=== PATIENT | male | born 1935 ===

== ENCOUNTER 2017-05-27 07:03 | Inpatient (IN) | payer MEDICARE, OTHER ==
[~2017-05-27] VITALS: Ht 165.1 cm; Wt 86.0 kg
[~2017-05-27 07:03] MED LIST: ACET325 PO; ALBU90OI61 INH; AMOCLA500 PO; ASPI81CH PO; BENZ100A PO; CENTRUM COMPLE1 EACH PO; CENTRUM SILVER1 EAC2 PO; CVS SENNA PLUS1 EACH PO; CYCL10 PO; DULERA 100 MCG/13 GM INH; FAMO20 PO; HYDACE5 PO; INSLIS75I; LEVFLO500 PO; LOSA50 PO; METO50 PO; NAPR220 PO; OMEP20ER PO; PRED20 PO; ROSU10TA PO; SENN187 PO; TAMS.4ER PO; VITAMIN D32000 UNIT PO
[2017-05-27 07:34] LABS: BASOPHILS ABSOLUTE AUTO 0.02 K/mm3 (0.00-0.23); BASOPHILS PERCENT AUTO 0 % (0-2); EOSINOPHILS PERCENT AUTO 0 % (0-6); Hematocrit 42.9 % (37.0-53.0); Hemoglobin 14.3 g/dL (13.5-17.5); IMMATURE GRAN ABSOLUTE AUTO 0.19 K/mm3 (0.00-0.10); IMMATURE GRAN PERCENT AUTO 1 % (0-1); LYMPHOCYTES PERCENT AUTO 7 % (21-46); MONOCYTES ABSOLUTE AUTO 2.01 K/mm3 (0.16-1.47); MONOCYTES PERCENT AUTO 11 % (4-13); Mean Corpuscular HGB 29.5 pg (26.0-34.0); Mean Corpuscular HGB Conc 33.3 g/dL (31.5-36.5); Mean Corpuscular Volume 89 fL (80-100); Mean Platelet Volume 9.7 fL (9.1-12.4); NEUTROPHILS ABSOLUTE AUTO 15.09 K/mm3 (1.96-9.15); NEUTROPHILS PERCENT AUTO 81 % (41-73); Platelet Count 405 K/mm3 (150-400); RDW Coefficient Variation 14.4 % (11.7-14.2); RDW Standard Deviation 46.7 fL (35.1-46.3); Red Blood Cell Count 4.84 M/mm3 (4.30-5.90); White Blood Cell Count 18.61 K/mm3 (4.00-11.30)
[2017-05-27 07:52] LABS: Alanine Aminotransfer (ALT/SGP 66 U/L (12-78); Albumin, Blood 2.8 g/dL (3.4-5.0); Albumin/Globulin Ratio 0.6 (0.8-1.8); Alk Phos 77 U/L (50-136); Anion Gap 6 mmol/L (6-16); Aspartate Aminotrans (AST/SGOT 56 U/L (12-37); Bilirubin, Total 0.6 mg/dL (0.1-1.0); Blood Urea Nitrogen 9 mg/dL (8-24); Bun/Creatinine Ratio 10.6 (12.0-20.0); CO2, Blood 28 mmol/L (21-32); Calcium, Blood 9.3 mg/dL (8.5-10.1); Chloride, Blood 102 mmol/L (98-108); Creatinine, Blood 0.85 mg/dL (0.60-1.20); Globulin, Blood 4.9 g/dL (2.2-4.0); Glomerular Filtration Rate >60 (60-); Glucose, Blood 140 mg/dL (70-99); Potassium, Blood 4.1 mmol/L (3.5-5.5); Sodium, Blood 136 mmol/L (136-145); Total Protein, Blood 7.7 g/dL (6.4-8.2); Troponin I 0.342 ng/mL (0.000-0.040)
[2017-05-27 08:09] LABS: Influenza A Negative (NEGATIVE); Influenza B Negative (NEGATIVE)
[2017-05-27 09:52] LABS: Source, Urine Catheter
[2017-05-27 09:57] LABS: Bilirubin, Urine Neg (Neg); Blood, Urine 3+ (Neg); Glucose Qualitative, Urine Neg (Neg); Ketones, Urine Neg (Neg); Leukocyte Esterase, Urine 3+ (Neg); Nitrite, Urine Neg (Neg); Protein, Urine 2+ (Neg); Specific Gravity, Urine 1.015 (1.003-1.022); Urobilinogen, Urine 1+ (Normal)
[2017-05-27 10:06] LABS: Appearance, Urine Clear (Clear); Color, Urine Yellow (P-Yellow)
[2017-05-27 10:07] LABS: Red Blood Cells, Urine 25-50 /hpf (0-2); White Blood Cells, Urine 25-50 /hpf (0-5)
[2017-05-27 10:08] LABS: Bacteria Mod /hpf; Mucus Light (0-Heavy); Squamous Epithelial Cells Few /hpf (Few)
[2017-05-29 05:24] LABS: Hematocrit 38.3 % (37.0-53.0); Hemoglobin 12.6 g/dL (13.5-17.5); Mean Corpuscular HGB 29.2 pg (26.0-34.0); Mean Corpuscular HGB Conc 32.9 g/dL (31.5-36.5); Mean Corpuscular Volume 89 fL (80-100); Mean Platelet Volume 9.9 fL (9.1-12.4); Platelet Count 465 K/mm3 (150-400); RDW Coefficient Variation 14.6 % (11.7-14.2); RDW Standard Deviation 47.6 fL (35.1-46.3); Red Blood Cell Count 4.31 M/mm3 (4.30-5.90); White Blood Cell Count 19.98 K/mm3 (4.00-11.30)
[2017-05-30 18:13] LABS: Source, Urine Clean Catch
[2017-05-30 18:17] LABS: Appearance, Urine Clear (Clear); Bilirubin, Urine Neg (Neg); Blood, Urine Neg (Neg); Color, Urine Yellow (P-Yellow); Glucose Qualitative, Urine Neg (Neg); Ketones, Urine Neg (Neg); Leukocyte Esterase, Urine Neg (Neg); Nitrite, Urine Neg (Neg); Protein, Urine Neg (Neg); Urobilinogen, Urine 2+ (Normal); pH, Urine 6.5 (5.0-8.0)
[2017-05-31 05:00] LABS: BASOPHILS PERCENT AUTO 0 % (0-2); EOSINOPHILS PERCENT AUTO 0 % (0-6); Hematocrit 39.2 % (37.0-53.0); Hemoglobin 12.7 g/dL (13.5-17.5); IMMATURE GRAN ABSOLUTE AUTO 0.04 K/mm3 (0.00-0.10); IMMATURE GRAN PERCENT AUTO 0 % (0-1); LYMPHOCYTES ABSOLUTE AUTO 0.84 K/mm3 (0.84-5.20); LYMPHOCYTES PERCENT AUTO 9 % (21-46); MONOCYTES ABSOLUTE AUTO 0.61 K/mm3 (0.16-1.47); MONOCYTES PERCENT AUTO 7 % (4-13); Mean Corpuscular HGB 29.5 pg (26.0-34.0); Mean Corpuscular HGB Conc 32.4 g/dL (31.5-36.5); Mean Corpuscular Volume 91 fL (80-100); Mean Platelet Volume 9.8 fL (9.1-12.4); NEUTROPHILS PERCENT AUTO 84 % (41-73); Platelet Count 429 K/mm3 (150-400); RDW Coefficient Variation 14.5 % (11.7-14.2); Red Blood Cell Count 4.31 M/mm3 (4.30-5.90); White Blood Cell Count 8.99 K/mm3 (4.00-11.30)
[2017-05-31 05:19] LABS: Anion Gap 4 mmol/L (6-16); Blood Urea Nitrogen 19 mg/dL (8-24); Bun/Creatinine Ratio 23.5 (12.0-20.0); CO2, Blood 31 mmol/L (21-32); Calcium, Blood 8.5 mg/dL (8.5-10.1); Chloride, Blood 102 mmol/L (98-108); Creatinine, Blood 0.81 mg/dL (0.60-1.20); Glomerular Filtration Rate >60 (60-); Glucose, Blood 246 mg/dL (70-99); Potassium, Blood 5.1 mmol/L (3.5-5.5); Sodium, Blood 137 mmol/L (136-145)
[2017-05-31] MEDS ORDERED: TAMS.4ER PO (09:44)
[2017-05-31] MEDS ORDERED: Florastor250 MG PO (09:45)
[2017-05-31] MEDS ORDERED: Veetids 500500 MG PO (09:46)
[2017-05-31] MEDS ORDERED: DELTASONE20 MG (09:48)
== END 2017-05-31 11:49 | disposition home or self-care (01) | DRG 871 ==
LOC: ER 07:03 → MEDS 09:28 → ENPENDDIS 05-31 09:00 → MEDS 05-31 11:49
PROVIDERS: Emergency Medicine; Internal Medicine
DX: A41.9 Sepsis, unspecified organism (principal); J96.01 Acute respiratory failure with hypoxia; J18.1 Lobar pneumonia, unspecified organism; J44.0 Chronic obstructive pulmonary disease with (acute) lower respiratory infection; J44.1 Chronic obstructive pulmonary disease with (acute) exacerbation; N39.0 Urinary tract infection, site not specified; R65.10 Systemic inflammatory response syndrome (SIRS) of non-infectious origin without acute organ dysfunction; Z79.01 Long term (current) use of anticoagulants; Z79.82 Long term (current) use of aspirin; I10 Essential (primary) hypertension; Z87.891 Personal history of nicotine dependence
CPT/HCPCS: 36415; 71020; 80048; 80053; 81001; 81003; 83880; 84484; 85025; 85027; 87070; 87086; 87186; 87205; 87804; 93005; 93010; 94640; 94664; 94667; 94760; 96365; 96372; 96375; 98960; 99285; J1650; J2540; J2543; J2920; J2930; J7030

== ENCOUNTER 2017-06-25 18:10 | Inpatient (IN) | payer MEDICARE, OTHER ==
[~2017-06-25] VITALS: Ht 165.1 cm; Wt 86.4 kg
[~2017-06-25 18:10] MED LIST changes: +DELTASONE20 MG; +Florastor250 MG PO; +Veetids 500500 MG PO
[2017-06-25 19:35] LABS: BASOPHILS ABSOLUTE AUTO 0.04 K/mm3 (0.00-0.23); BASOPHILS PERCENT AUTO 0 % (0-2); EOSINOPHILS ABSOLUTE AUTO 0.05 K/mm3 (0.00-0.68); EOSINOPHILS PERCENT AUTO 0 % (0-6); Hematocrit 44.7 % (37.0-53.0); Hemoglobin 14.6 g/dL (13.5-17.5); IMMATURE GRAN ABSOLUTE AUTO 0.09 K/mm3 (0.00-0.10); IMMATURE GRAN PERCENT AUTO 1 % (0-1); LYMPHOCYTES ABSOLUTE AUTO 1.96 K/mm3 (0.84-5.20); LYMPHOCYTES PERCENT AUTO 16 % (21-46); MONOCYTES ABSOLUTE AUTO 1.25 K/mm3 (0.16-1.47); MONOCYTES PERCENT AUTO 10 % (4-13); Mean Corpuscular HGB Conc 32.7 g/dL (31.5-36.5); Mean Corpuscular Volume 89 fL (80-100); Mean Platelet Volume 9.5 fL (9.1-12.4); NEUTROPHILS ABSOLUTE AUTO 8.82 K/mm3 (1.96-9.15); NEUTROPHILS PERCENT AUTO 72 % (41-73); Platelet Count 234 K/mm3 (150-400); RDW Coefficient Variation 14.6 % (11.7-14.2); RDW Standard Deviation 47.1 fL (35.1-46.3); Red Blood Cell Count 5.04 M/mm3 (4.30-5.90); White Blood Cell Count 12.21 K/mm3 (4.00-11.30)
[2017-06-25 19:50] LABS: Alanine Aminotransfer (ALT/SGP 22 U/L (12-78); Albumin, Blood 3.2 g/dL (3.4-5.0); Albumin/Globulin Ratio 0.7 (0.8-1.8); Alk Phos 114 U/L (50-136); Anion Gap 9 mmol/L (6-16); Aspartate Aminotrans (AST/SGOT 16 U/L (12-37); Bilirubin, Total 0.5 mg/dL (0.1-1.0); Blood Urea Nitrogen 14 mg/dL (8-24); Bun/Creatinine Ratio 13.9 (12.0-20.0); CO2, Blood 25 mmol/L (21-32); Calcium, Blood 9.3 mg/dL (8.5-10.1); Chloride, Blood 104 mmol/L (98-108); Creatinine, Blood 1.01 mg/dL (0.60-1.20); Globulin, Blood 4.6 g/dL (2.2-4.0); Glomerular Filtration Rate >60 (60-); Glucose, Blood 99 mg/dL (70-99); Potassium, Blood 4.2 mmol/L (3.5-5.5); Sodium, Blood 138 mmol/L (136-145); Total Protein, Blood 7.8 g/dL (6.4-8.2)
[2017-06-25] MEDS ORDERED: [UNRECOGNIZED DRUG - CODE] PO (23:11)
[2017-06-25 23:33] LABS: Troponin I 0.207 ng/mL (0.000-0.040)
[2017-06-26 00:06] LABS: Influenza A Negative (NEGATIVE); Influenza B Negative (NEGATIVE)
[2017-06-26 02:23] LABS: Source, Urine Clean Catch
[2017-06-26 02:25] LABS: Bilirubin, Urine Neg (Neg); Blood, Urine 1+ (Neg); Glucose Qualitative, Urine Neg (Neg); Ketones, Urine Neg (Neg); Leukocyte Esterase, Urine Neg (Neg); Nitrite, Urine Neg (Neg); Protein, Urine Neg (Neg); Urobilinogen, Urine NORM (Normal)
[2017-06-26 02:27] LABS: Appearance, Urine Clear (Clear); Color, Urine Yellow (P-Yellow)
[2017-06-26 02:36] LABS: Amorphous Light (0-Heavy); Bacteria Not Seen /hpf; Red Blood Cells, Urine 0-2 /hpf (0-2); Squamous Epithelial Cells Not Seen /hpf (Few); White Blood Cells, Urine Not Seen /hpf (0-5)
[2017-06-26 04:29] LABS: BASOPHILS ABSOLUTE AUTO 0.03 K/mm3 (0.00-0.23); BASOPHILS PERCENT AUTO 0 % (0-2); EOSINOPHILS ABSOLUTE AUTO 0.04 K/mm3 (0.00-0.68); EOSINOPHILS PERCENT AUTO 0 % (0-6); Hematocrit 37.9 % (37.0-53.0); Hemoglobin 12.5 g/dL (13.5-17.5); IMMATURE GRAN ABSOLUTE AUTO 0.08 K/mm3 (0.00-0.10); IMMATURE GRAN PERCENT AUTO 1 % (0-1); LYMPHOCYTES ABSOLUTE AUTO 1.87 K/mm3 (0.84-5.20); LYMPHOCYTES PERCENT AUTO 16 % (21-46); MONOCYTES PERCENT AUTO 6 % (4-13); Mean Corpuscular HGB 29.3 pg (26.0-34.0); Mean Corpuscular Volume 89 fL (80-100); Mean Platelet Volume 9.9 fL (9.1-12.4); NEUTROPHILS ABSOLUTE AUTO 9.35 K/mm3 (1.96-9.15); NEUTROPHILS PERCENT AUTO 78 % (41-73); Platelet Count 215 K/mm3 (150-400); RDW Coefficient Variation 14.6 % (11.7-14.2); RDW Standard Deviation 47.3 fL (35.1-46.3); Red Blood Cell Count 4.26 M/mm3 (4.30-5.90); White Blood Cell Count 12.07 K/mm3 (4.00-11.30)
[2017-06-26 04:53] LABS: Alanine Aminotransfer (ALT/SGP 22 U/L (12-78); Albumin, Blood 2.6 g/dL (3.4-5.0); Albumin/Globulin Ratio 0.7 (0.8-1.8); Alk Phos 87 U/L (50-136); Anion Gap 6 mmol/L (6-16); Aspartate Aminotrans (AST/SGOT 15 U/L (12-37); Bilirubin, Total 0.8 mg/dL (0.1-1.0); Blood Urea Nitrogen 12 mg/dL (8-24); Bun/Creatinine Ratio 12.1 (12.0-20.0); CO2, Blood 27 mmol/L (21-32); Calcium, Blood 8.2 mg/dL (8.5-10.1); Chloride, Blood 105 mmol/L (98-108); Creatinine, Blood 0.99 mg/dL (0.60-1.20); Globulin, Blood 3.9 g/dL (2.2-4.0); Glomerular Filtration Rate >60 (60-); Glucose, Blood 140 mg/dL (70-99); Potassium, Blood 4.6 mmol/L (3.5-5.5); Sodium, Blood 138 mmol/L (136-145); Total Protein, Blood 6.5 g/dL (6.4-8.2)
[2017-06-26 06:24] LABS: Troponin I 0.172 ng/mL (0.000-0.040)
[2017-06-26 12:51] LABS: Troponin I 0.163 ng/mL (0.000-0.040); Vancomycin, Random 5.6 ug/mL
[2017-06-27 04:10] LABS: BASOPHILS ABSOLUTE AUTO 0.01 K/mm3 (0.00-0.23); BASOPHILS PERCENT AUTO 0 % (0-2); EOSINOPHILS PERCENT AUTO 0 % (0-6); Hematocrit 35.4 % (37.0-53.0); Hemoglobin 11.5 g/dL (13.5-17.5); IMMATURE GRAN ABSOLUTE AUTO 0.16 K/mm3 (0.00-0.10); IMMATURE GRAN PERCENT AUTO 1 % (0-1); LYMPHOCYTES ABSOLUTE AUTO 1.14 K/mm3 (0.84-5.20); LYMPHOCYTES PERCENT AUTO 9 % (21-46); MONOCYTES ABSOLUTE AUTO 0.69 K/mm3 (0.16-1.47); MONOCYTES PERCENT AUTO 5 % (4-13); Mean Corpuscular HGB 28.6 pg (26.0-34.0); Mean Corpuscular HGB Conc 32.5 g/dL (31.5-36.5); Mean Corpuscular Volume 88 fL (80-100); Mean Platelet Volume 10.2 fL (9.1-12.4); NEUTROPHILS ABSOLUTE AUTO 11.47 K/mm3 (1.96-9.15); NEUTROPHILS PERCENT AUTO 85 % (41-73); Platelet Count 221 K/mm3 (150-400); RDW Standard Deviation 45.1 fL (35.1-46.3); Red Blood Cell Count 4.02 M/mm3 (4.30-5.90); White Blood Cell Count 13.47 K/mm3 (4.00-11.30)
[2017-06-27 04:20] LABS: Anion Gap 9 mmol/L (6-16); Blood Urea Nitrogen 17 mg/dL (8-24); Bun/Creatinine Ratio 19.7 (12.0-20.0); CO2, Blood 22 mmol/L (21-32); Calcium, Blood 8.2 mg/dL (8.5-10.1); Chloride, Blood 106 mmol/L (98-108); Creatinine, Blood 0.86 mg/dL (0.60-1.20); Glomerular Filtration Rate >60 (60-); Glucose, Blood 304 mg/dL (70-99); Potassium, Blood 3.9 mmol/L (3.5-5.5); Sodium, Blood 137 mmol/L (136-145)
[2017-06-27 12:50] LABS: Vancomycin, Random 14.3 ug/mL
[2017-06-28 05:18] LABS: Hematocrit 37.3 % (37.0-53.0); Hemoglobin 12.1 g/dL (13.5-17.5); Mean Corpuscular HGB 28.9 pg (26.0-34.0); Mean Corpuscular HGB Conc 32.4 g/dL (31.5-36.5); Mean Corpuscular Volume 89 fL (80-100); Mean Platelet Volume 10.1 fL (9.1-12.4); Platelet Count 251 K/mm3 (150-400); RDW Coefficient Variation 14.4 % (11.7-14.2); RDW Standard Deviation 46.5 fL (35.1-46.3); Red Blood Cell Count 4.19 M/mm3 (4.30-5.90); White Blood Cell Count 16.22 K/mm3 (4.00-11.30)
[2017-06-28 06:05] LABS: Anion Gap 8 mmol/L (6-16); Blood Urea Nitrogen 18 mg/dL (8-24); Bun/Creatinine Ratio 18.8 (12.0-20.0); CO2, Blood 24 mmol/L (21-32); Calcium, Blood 8.5 mg/dL (8.5-10.1); Chloride, Blood 108 mmol/L (98-108); Creatinine, Blood 0.96 mg/dL (0.60-1.20); Glomerular Filtration Rate >60 (60-); Glucose, Blood 191 mg/dL (70-99); Potassium, Blood 4.3 mmol/L (3.5-5.5); Sodium, Blood 140 mmol/L (136-145)
[2017-06-28 13:25] LABS: Vancomycin, Trough 9.2 ug/mL (5.0-10.0)
[2017-06-29] MEDS ORDERED: PRED20 (11:42)
[2017-06-29] MEDS ORDERED: METF500C PO (11:45)
[2017-06-29] MEDS ORDERED: AMOX875 PO (11:49)
[2017-06-29] MEDS ORDERED: SACC250C (11:52)
== END 2017-06-29 12:43 | disposition home or self-care (01) | DRG 871 ==
LOC: ER 18:10 → ICUW 23:14 → MEDS 06-27 16:36 → ENPENDDIS 06-29 10:31 → MEDS 06-29 12:43
PROVIDERS: Emergency Medicine; Family Medicine; Internal Medicine; Pharmacist; Physician Assistant
DX: A41.9 Sepsis, unspecified organism (principal); J18.9 Pneumonia, unspecified organism; J96.01 Acute respiratory failure with hypoxia; J44.0 Chronic obstructive pulmonary disease with (acute) lower respiratory infection; E78.5 Hyperlipidemia, unspecified; I10 Essential (primary) hypertension; G47.33 Obstructive sleep apnea (adult) (pediatric); R73.9 Hyperglycemia, unspecified; K21.9 Gastro-esophageal reflux disease without esophagitis; N40.0 Benign prostatic hyperplasia without lower urinary tract symptoms; Z86.73 Personal history of transient ischemic attack (TIA), and cerebral infarction without residual deficits; Z95.2 Presence of prosthetic heart valve; Z87.891 Personal history of nicotine dependence; Z79.82 Long term (current) use of aspirin; Z79.899 Other long term (current) drug therapy
CPT/HCPCS: 36415; 71046; 80048; 80053; 80202; 81001; 82947; 83036; 83605; 84145; 84484; 85025; 85027; 87040; 87493; 87804; 93005; 93010; 94640; 94760; 96365; 96375; 99285; J0744; J1650; J1956; J2543; J2930; J3370; J7030; J7050

== ENCOUNTER 2018-07-08 10:56 | Day surgery (SDC) | payer MEDICARE, OTHER ==
[~2018-07-08] VITALS: Ht 165.1 cm; Wt 87.5 kg
[~2018-07-08 10:56] MED LIST changes: +ALBU90OI INH; +AMOX875 PO; +CHOL10002 PO; +METF500C PO; +PRED20; +ROSU5 PO; +SACC250C; +[UNRECOGNIZED DRUG - CODE] PO
--- NOTE | 2018-07-08 11:21 | NUR ---
History, Chart, Medications and Allergies reviewed before start of procedure.Patient confirms NPO status and agrees with scheduled surgery. Patient reports completing Chlorhexadine shower X2 prior to admission to hospital. LS WITH EXP WHEEZES NOTED. DR. GARZA NOTIFIED VO FOR DOUNEB TREATMENT.
--- NOTE | 2018-07-08 11:40 | NUR ---
PT GIVEN TYLENOL AND OXYTONIN PO. DOUNEB STARTED AT THIS TIME.
--- NOTE | 2018-07-08 11:58 | NUR ---
PT AMB TO BATHROOM WITHOUT DIFFICULTY. LS CLEARER. FAINT EXP WHEEZES NOTED IN LEFT BASE.
--- NOTE | 2018-07-08 18:00 | NUR ---
SHIFT SUMMARY PT A&OX4, VSS, S/P R TKA, AQUACEL & MAHESH WRAP CDI, TEDS & SCDS ON. PT STAND TRANSFER WITH FWW & GB 1 MOD ASSIST TO CHAIR. DENIES PAIN AT THIS TIME. DENIES N&V, EMILY PO. CBG CNI. FAMILY AT BEDSIDE. WILL CTM & TX PRN UNTIL REPORT GIVEN TO ONCEVELIO VASQUEZ RN.
[2018-07-09 04:46] LABS: BASOPHILS ABSOLUTE AUTO 0.02 K/mm3 (0.00-0.23); BASOPHILS PERCENT AUTO 0 % (0-2); EOSINOPHILS ABSOLUTE AUTO 0.01 K/mm3 (0.00-0.68); EOSINOPHILS PERCENT AUTO 0 % (0-6); Hematocrit 41.6 % (37.0-53.0); Hemoglobin 13.3 g/dL (13.5-17.5); IMMATURE GRAN ABSOLUTE AUTO 0.07 K/mm3 (0.00-0.10); IMMATURE GRAN PERCENT AUTO 1 % (0-1); LYMPHOCYTES ABSOLUTE AUTO 2.09 K/mm3 (0.84-5.20); LYMPHOCYTES PERCENT AUTO 15 % (21-46); MONOCYTES ABSOLUTE AUTO 1.23 K/mm3 (0.16-1.47); MONOCYTES PERCENT AUTO 9 % (4-13); Mean Corpuscular HGB 29.3 pg (26.0-34.0); Mean Corpuscular Volume 92 fL (80-100); Mean Platelet Volume 10.3 fL (9.1-12.4); NEUTROPHILS ABSOLUTE AUTO 10.43 K/mm3 (1.96-9.15); NEUTROPHILS PERCENT AUTO 75 % (41-73); Platelet Count 170 K/mm3 (150-400); RDW Coefficient Variation 13.9 % (11.7-14.2); RDW Standard Deviation 47.3 fL (35.1-46.3); Red Blood Cell Count 4.54 M/mm3 (4.30-5.90); White Blood Cell Count 13.85 K/mm3 (4.00-11.30)
--- NOTE | 2018-07-09 04:47 | NUR ---
SHIFT SUMMARY PT A&OX4 T/O SHIFT. NO ACUTE CHANGES. POD#1 R TKA; DRESSING AND MAHESH WRAP CDI T/O SHIFT. PAIN MANAGED PER EMAR. PT DENIES NAUSEA, SOB AND CP T/O SHIFT; RA. BLOOD GLUCOSE MANGED PER EMAR. SCD'S AND SHAUN'S TO BLE'S; PPPX4; PT DENIES N/T IN EXT. PT UP IN MIGUEL WITH FWW, GAITBELT AND SBA X1; UP TO TOILET WITH SAME ASSIT. CALL LIGHT IN REACH; PT DEMONSTRATES USE. WCTM UNTIL REPORT TO DAY SHIFT RN.
[2018-07-09 05:03] LABS: Anion Gap 7 mmol/L (6-16); Blood Urea Nitrogen 18 mg/dL (8-24); Bun/Creatinine Ratio 16.2 (12.0-20.0); CO2, Blood 28 mmol/L (21-32); Calcium, Blood 8.4 mg/dL (8.5-10.1); Chloride, Blood 106 mmol/L (98-108); Creatinine, Blood 1.11 mg/dL (0.60-1.20); Glomerular Filtration Rate >60 (60-); Glucose, Blood 132 mg/dL (70-99); Potassium, Blood 4.5 mmol/L (3.5-5.5); Sodium, Blood 141 mmol/L (136-145)
--- NOTE | 2018-07-09 12:17 | NUR ---
pt medicated with toradol for primary rn. pt sitting in chair eating lunch. family at bedside.
--- NOTE | 2018-07-09 13:51 | NUR ---
pt working with therapy.
[2018-07-09] MEDS ORDERED: ASPI325EC PO ×2 (14:29)
[2018-07-09] MEDS ORDERED: Percocet 5-3251 EACH PO ×2 (14:30)
--- NOTE | 2018-07-09 14:53 | NUR ---
DISCHARGE SUMMARY PT A&OX4, VSS, LEFT FLOOR VIA WC WITH WEB CONTENT WRITER TO GO HOME WITH FRIEND WITH ALL PERSONAL POSSESSIONS INCLUDING DISCHARGE PACKET, 2 AQUACEL DRESSINGS, 2 SCRIPTS: ASA AND PERCOCET, POLAR LILI. DISCHARGE INSTRUCTIONS PROVIDED. PT REP UNDERSTANDING THOSE INSTRUCTIONS INCLUDING DRESSING CHANGES, ASA 325, STOP 81, RESUME 81 AFTER STOP TAKING 325 MG, ICE/ELEVATE AT REST, PAIN MANAGEMENT/ PRIOR TO PHYSICAL THERAPY AND 2 WK FU WITH SURGEON. IV DC'D.
[2018-07-10] MEDS ORDERED: CEPH500 PO (20:46)
== END 2018-07-09 14:49 | disposition home or self-care (01) ==
LOC: ORSCMMR 10:56 → ORD 15:00 → SURS 15:09 → ORSCMMR 07-09 14:49
PROVIDERS: Orthopaedic Surgery
PROC: 0SRC0JA Replacement of Right Knee Joint with Synthetic Substitute, Uncemented, Open Approach (ICD-10-PCS; principal; 2018-07-08 12:30)
DX: M17.11 Unilateral primary osteoarthritis, right knee (principal); Z01.818 Encounter for other preprocedural examination; I10 Essential (primary) hypertension; E11.9 Type 2 diabetes mellitus without complications; J44.9 Chronic obstructive pulmonary disease, unspecified; Z87.891 Personal history of nicotine dependence; Z79.899 Other long term (current) drug therapy; Z79.82 Long term (current) use of aspirin
CPT/HCPCS: 36415; 73560-RT; 80048; 82947; 85025; 86850; 86900; 86901; 88300; 97110; 97116; 97162; 97530; C1776; J0171; J0690; J0735; J1100; J1815; J1885; J2370; J2405; J2795; J3010; J7120

== ENCOUNTER 2018-07-10 19:08 | Emergency (ER) | payer MEDICARE, OTHER ==
[~2018-07-10] VITALS: Ht 165.1 cm; Wt 88.9 kg
[~2018-07-10 19:08] MED LIST changes: +ASPI325EC PO; +Percocet 5-3251 EACH PO
[2018-07-10 20:08] LABS: BASOPHILS ABSOLUTE AUTO 0.05 K/mm3 (0.00-0.23); BASOPHILS PERCENT AUTO 1 % (0-2); EOSINOPHILS PERCENT AUTO 1 % (0-6); IMMATURE GRAN ABSOLUTE AUTO 0.03 K/mm3 (0.00-0.10); IMMATURE GRAN PERCENT AUTO 0 % (0-1); LYMPHOCYTES ABSOLUTE AUTO 2.71 K/mm3 (0.84-5.20); LYMPHOCYTES PERCENT AUTO 26 % (21-46); MONOCYTES ABSOLUTE AUTO 1.41 K/mm3 (0.16-1.47); MONOCYTES PERCENT AUTO 13 % (4-13); Mean Corpuscular HGB 29.5 pg (26.0-34.0); Mean Corpuscular HGB Conc 31.6 g/dL (31.5-36.5); Mean Corpuscular Volume 93 fL (80-100); Mean Platelet Volume 10.5 fL (9.1-12.4); NEUTROPHILS ABSOLUTE AUTO 6.24 K/mm3 (1.96-9.15); NEUTROPHILS PERCENT AUTO 59 % (41-73); Platelet Count 149 K/mm3 (150-400); RDW Coefficient Variation 14.6 % (11.7-14.2); RDW Standard Deviation 50.2 fL (35.1-46.3); Red Blood Cell Count 4.07 M/mm3 (4.30-5.90); White Blood Cell Count 10.54 K/mm3 (4.00-11.30)
[2018-07-10 20:35] LABS: Alanine Aminotransfer (ALT/SGP 23 U/L (12-78); Albumin, Blood 2.8 g/dL (3.4-5.0); Albumin/Globulin Ratio 0.8 (0.8-1.8); Alk Phos 76 U/L (50-136); Anion Gap 5 mmol/L (6-16); Aspartate Aminotrans (AST/SGOT 24 U/L (12-37); Bilirubin, Total 0.7 mg/dL (0.1-1.0); Blood Urea Nitrogen 23 mg/dL (8-24); Bun/Creatinine Ratio 21.5 (12.0-20.0); CO2, Blood 28 mmol/L (21-32); Calcium, Blood 8.4 mg/dL (8.5-10.1); Chloride, Blood 107 mmol/L (98-108); Creatinine, Blood 1.07 mg/dL (0.60-1.20); Globulin, Blood 3.6 g/dL (2.2-4.0); Glomerular Filtration Rate >60 (60-); Glucose, Blood 107 mg/dL (70-99); Potassium, Blood 4.2 mmol/L (3.5-5.5); Sodium, Blood 140 mmol/L (136-145); Total Protein, Blood 6.4 g/dL (6.4-8.2)
[2018-07-10] MEDS ORDERED: CEPH500 PO (20:46)
== END 2018-07-10 22:00 | disposition home or self-care (01) ==
LOC: ER 19:08
PROVIDERS: Physician Assistant
DX: T81.40XA Infection following a procedure, unspecified, initial encounter (principal); L03.115 Cellulitis of right lower limb; E78.00 Pure hypercholesterolemia, unspecified; I10 Essential (primary) hypertension; K21.9 Gastro-esophageal reflux disease without esophagitis; Z87.891 Personal history of nicotine dependence; Z79.899 Other long term (current) drug therapy; Z79.82 Long term (current) use of aspirin; Z96.651 Presence of right artificial knee joint
CPT/HCPCS: 36415; 80053; 85025; 93971; 96365; 99284-25; J0696

== ENCOUNTER 2018-11-22 11:41 | Emergency (ER) | payer MEDICARE, OTHER ==
[~2018-11-22] VITALS: Ht 165.1 cm; Wt 88.9 kg
[~2018-11-22 11:41] MED LIST changes: +CEPH500 PO
[2018-11-22] MEDS ORDERED: Augmentin 875-1 EACH PO (13:13)
== END 2018-11-22 13:26 | disposition home or self-care (01) ==
LOC: ER 11:41
DX: J44.1 Chronic obstructive pulmonary disease with (acute) exacerbation (principal); Z79.899 Other long term (current) drug therapy; Z79.84 Long term (current) use of oral hypoglycemic drugs; Z79.82 Long term (current) use of aspirin; I10 Essential (primary) hypertension; K21.9 Gastro-esophageal reflux disease without esophagitis; Z87.891 Personal history of nicotine dependence
CPT/HCPCS: 71046; 99284-25

== ENCOUNTER 2019-01-04 15:23 | Emergency (ER) | payer MEDICARE, OTHER ==
[~2019-01-04] VITALS: Ht 165.1 cm; Wt 88.9 kg
[~2019-01-04 15:23] MED LIST changes: +Augmentin 875-1 EACH PO
[2019-01-04 16:03] LABS: BASOPHILS ABSOLUTE AUTO 0.08 K/mm3 (0.00-0.23); BASOPHILS PERCENT AUTO 1 % (0-2); EOSINOPHILS ABSOLUTE AUTO 0.77 K/mm3 (0.00-0.68); EOSINOPHILS PERCENT AUTO 9 % (0-6); Hematocrit 51.2 % (37.0-53.0); Hemoglobin 16.4 g/dL (13.5-17.5); IMMATURE GRAN ABSOLUTE AUTO 0.02 K/mm3 (0.00-0.10); IMMATURE GRAN PERCENT AUTO 0 % (0-1); LYMPHOCYTES ABSOLUTE AUTO 3.38 K/mm3 (0.84-5.20); LYMPHOCYTES PERCENT AUTO 39 % (21-46); MONOCYTES ABSOLUTE AUTO 1.01 K/mm3 (0.16-1.47); MONOCYTES PERCENT AUTO 12 % (4-13); Mean Corpuscular HGB 28.8 pg (26.0-34.0); Mean Corpuscular Volume 90 fL (80-100); Mean Platelet Volume 10.3 fL (9.1-12.4); NEUTROPHILS ABSOLUTE AUTO 3.44 K/mm3 (1.96-9.15); NEUTROPHILS PERCENT AUTO 40 % (41-73); Platelet Count 223 K/mm3 (150-400); RDW Coefficient Variation 15.1 % (11.7-14.2)
[2019-01-04 16:27] LABS: Alanine Aminotransfer (ALT/SGP 22 U/L (12-78); Albumin, Blood 3.7 g/dL (3.4-5.0); Albumin/Globulin Ratio 0.9 (0.8-1.8); Alk Phos 110 U/L (50-136); Anion Gap 5 mmol/L (6-16); Aspartate Aminotrans (AST/SGOT 14 U/L (12-37); Bilirubin, Total 0.3 mg/dL (0.1-1.0); Blood Urea Nitrogen 15 mg/dL (8-24); Bun/Creatinine Ratio 16.3 (12.0-20.0); CO2, Blood 30 mmol/L (21-32); Calcium, Blood 9.2 mg/dL (8.5-10.1); Chloride, Blood 106 mmol/L (98-108); Creatinine, Blood 0.92 mg/dL (0.60-1.20); Globulin, Blood 4.2 g/dL (2.2-4.0); Glomerular Filtration Rate >60 (60-); Glucose, Blood 104 mg/dL (70-99); Potassium, Blood 3.8 mmol/L (3.5-5.5); Sodium, Blood 141 mmol/L (136-145); Total Protein, Blood 7.9 g/dL (6.4-8.2)
[2019-01-04] MEDS ORDERED: Atrovent Inha12.9 GM INH (17:56)
[2019-01-04] MEDS ORDERED: Prednisone50 MG PO (17:56)
[2019-01-04] MEDS ORDERED: FLUT1DIS5 INH (17:56)
[2019-01-04] MEDS ORDERED: ALBU90OI INH (17:56)
== END 2019-01-04 19:16 | disposition home or self-care (01) ==
LOC: ER 15:23
PROVIDERS: Physician Assistant
DX: J44.9 Chronic obstructive pulmonary disease, unspecified (principal); Z79.899 Other long term (current) drug therapy; Z79.84 Long term (current) use of oral hypoglycemic drugs; Z79.82 Long term (current) use of aspirin; E78.5 Hyperlipidemia, unspecified; I10 Essential (primary) hypertension; K21.9 Gastro-esophageal reflux disease without esophagitis; Z87.891 Personal history of nicotine dependence
CPT/HCPCS: 36415; 71046; 80053; 85025; 93005; 93010; 94640; 96374; 99284-25; J1100

== ENCOUNTER 2019-06-18 17:17 | Emergency (ER) | payer MEDICARE, OTHER ==
[~2019-06-18] VITALS: Ht 165.1 cm; Wt 89.1 kg
[~2019-06-18 17:17] MED LIST changes: +Atrovent Inha12.9 GM INH; +FLUT1DIS5 INH; +Prednisone50 MG PO
[2019-06-18] MEDS ORDERED: IBUP600 PO (19:12)
== END 2019-06-18 19:26 | disposition home or self-care (01) ==
LOC: ER 17:17
DX: R07.81 Pleurodynia (principal); J44.9 Chronic obstructive pulmonary disease, unspecified; E78.5 Hyperlipidemia, unspecified; I10 Essential (primary) hypertension; K21.9 Gastro-esophageal reflux disease without esophagitis; N40.0 Benign prostatic hyperplasia without lower urinary tract symptoms; Z87.891 Personal history of nicotine dependence; Z79.899 Other long term (current) drug therapy; W19.XXXA Unspecified fall, initial encounter
CPT/HCPCS: 71101; 99283-25; A9270-GY

== ENCOUNTER 2019-11-20 01:08 | Inpatient (IN) | payer MEDICARE, OTHER ==
[~2019-11-20] VITALS: Ht 167.6 cm; Wt 87.0 kg
[~2019-11-20 01:08] MED LIST changes: +IBUP600 PO
[2019-11-20 01:25] LABS: BASOPHILS PERCENT AUTO 1 % (0-2); EOSINOPHILS PERCENT AUTO 5 % (0-6); Hematocrit 52.2 % (37.0-53.0); Hemoglobin 16.4 g/dL (13.5-17.5); IMMATURE GRAN ABSOLUTE AUTO 0.03 K/mm3 (0.00-0.10); IMMATURE GRAN PERCENT AUTO 0 % (0-1); LYMPHOCYTES ABSOLUTE AUTO 8.72 K/mm3 (0.84-5.20); LYMPHOCYTES PERCENT AUTO 56 % (21-46); MONOCYTES ABSOLUTE AUTO 1.31 K/mm3 (0.16-1.47); MONOCYTES PERCENT AUTO 8 % (4-13); Mean Corpuscular HGB 29.6 pg (26.0-34.0); Mean Corpuscular HGB Conc 31.4 g/dL (31.5-36.5); Mean Corpuscular Volume 94 fL (80-100); Mean Platelet Volume 10.5 fL (9.1-12.4); NEUTROPHILS ABSOLUTE AUTO 4.72 K/mm3 (1.96-9.15); NEUTROPHILS PERCENT AUTO 30 % (41-73); Platelet Count 201 K/mm3 (150-400); RDW Coefficient Variation 13.4 % (11.7-14.2); RDW Standard Deviation 46.7 fL (35.1-46.3); Red Blood Cell Count 5.54 M/mm3 (4.30-5.90); White Blood Cell Count 15.68 K/mm3 (4.00-11.30)
[2019-11-20 01:45] LABS: Albumin, Blood 3.9 g/dL (3.4-5.0); Bilirubin, Total 0.5 mg/dL (0.1-1.0); Calcium, Blood 8.9 mg/dL (8.5-10.1); Creatinine, Blood 1.29 mg/dL (0.60-1.20); Globulin, Blood 4.1 g/dL (2.2-4.0); Magnesium, Blood 2.1 mg/dL (1.6-2.4); Potassium, Blood 4.1 mmol/L (3.5-5.5); Troponin I 0.19 ng/mL (0.000-0.040)
--- NOTE | 2019-11-20 07:23 | NUR ---
ARRIVAL TO ICU/SHIFT SUMMARY PT TO ICU 3 VIA TIMOTHY WITH ED RN @ 0350, PT ON BIPAP 14/10 35% FIO2, TOLERATES SHORT BREAK FROM BIPAP FOR TRANSFER TO ICU BED, PT REPORTS SOB OFF OF BIPAP BUT IMPROVED FROM ARRIVAL TO ED. MONITOR SHOWS SINUS RHYTHM, MILD HTN WITH SBP 140'S-150'S, PT DENIES CP. PT ORIENTED x4. PT USES URINAL AT BEDSIDE, VOIDS INDEPENDENTLY. REPORT GIVEN TO DAPHNEY AVILEZ.
--- NOTE | 2019-11-20 12:08 | NUR ---
REASSESSMENT PT HAS BEEN RESTING IN BED OR SITTING ON THE EOB THROUGHOUT THE MORNING. PT STATES HE IS FEELING A LOT BETTER THAN YESTERDAY. TOOK PT OFF BIPAP THIS MORNING FOR BREAKFAST AND HAS MAINTAINED SPO2 88-94% ON RA. PT DOES GET DYSPNEIC AND DESAT WITH STANDING AND ACTIVITY, BUT RECOVERS QUICKLY. SR AT REST, ST IN THE LOW 100S WITH ACTIVITY. HYPERTENSIVE WITH SBP IN 160S PT IS SITTING ON EOB. PT IS EATING WELL AND VOIDING IN THE URINAL. PT HAD A VISITOR THIS MORNING. CONTINUING TO MONITOR.
--- NOTE | 2019-11-20 13:24 | NUR ---
echocardiogram complete
[2019-11-20 14:37] LABS: Adenovirus Not Detected (NOT DETECT); Bordetella pertussis Not Detected (NOT DETECT); Chlamydophila pneumoniae Not Detected (NOT DETECT); Coronavirus 229E Not Detected (NOT DETECT); Coronavirus HKU1 Not Detected (NOT DETECT); Coronavirus NL63 Not Detected (NOT DETECT); Coronavirus OC43 Not Detected (NOT DETECT); Human Metapneumovirus Not Detected (NOT DETECT); Human Rhinovirus/Enterovirus Not Detected (NOT DETECT); Influenza A/2009-H1 Not Detected (NOT DETECT); Influenza A/H1 Not Detected (NOT DETECT); Influenza A/H3 Not Detected (NOT DETECT); Influenza B Not Detected (NOT DETECT); Mycoplasma pneumoniae Not Detected (NOT DETECT); Parainfluenza Virus 1 Not Detected (NOT DETECT); Parainfluenza Virus 2 Not Detected (NOT DETECT); Parainfluenza Virus 3 Not Detected (NOT DETECT); Parainfluenza Virus 4 Not Detected (NOT DETECT); Respiratory Syncytial Virus Not Detected (NOT DETECT)
--- NOTE | 2019-11-20 17:03 | NUR ---
SHIFT SUMMARY PT HAS CONTINUED TO DO WELL THROUGHOUT THE SHIFT. HE STILL GETS DYSPNEIC WITH ACITIVYT, BUT RECOVERS QUICKLY. HIS SPO2 DROPPED TO THE MID 80S WHILE HE WAS SLEEPING. PLACED PT ON 2L/NC AND PT MAINTAINED SPO2 ABOVE 90 WHILE SLEEPING. LUNGS STILL HAVE FEW SCATTERED WHEEZES. ST WITH RATE IN THE LOW 100S, SBP IN THE 160S. EATING WELL. HAS NOT REQUIRED INSULIN COVERAGE. VOIDING SMALL AMTS AT A TIME IN THE URINAL. PT TO TRANSFER OVER TO PCU. REPORT GIVEN TO RAGHAV CHENG.
--- NOTE | 2019-11-20 17:57 | NUR ---
ASSUME CARE: PT TRANSFERRED FROM ICU RECEIVED REPORT FROM JAIDA AVILEZ. PT IS HERE FOR COPD EXACERBATION. PT ARRIVED IN THE UNIT VIA WHEELCHAIR. VITALS HAS BEEN STABLE BP SYSOLIC 140'S, HRR ST 100'S, SATS 93% ON ROOMAIR, AFEBRILE. PT DENIES CHEST PAIN/PRESSURE/SOB. 1PA SBA FOR TRANSFERS. PT IS ALERT AND ORIENTED TO PLACE PERSON AND SITUATION, UNSURE OF TIME AND DATE. FIRST LANGUAGE IS ITALIAN, UNDERSTANDS SIMPLE UKRAINIAN. PT ABLE TO MAKE NEEDS KNOWN COOPERATIVE WITH CARES, CALL LIGHTS WITHIN REACH WILL REPORT TO ONCOMING SHIFT.
[2019-11-21 04:14] LABS: Albumin, Blood 3.7 g/dL (3.4-5.0); Anion Gap 9 mmol/L (6-16); Blood Urea Nitrogen 34 mg/dL (8-24); Bun/Creatinine Ratio 27.4 (12.0-20.0); CO2, Blood 25 mmol/L (21-32); Calcium, Blood 9.2 mg/dL (8.5-10.1); Chloride, Blood 104 mmol/L (98-108); Creatinine, Blood 1.24 mg/dL (0.60-1.20); Glomerular Filtration Rate 59 (60-); Glucose, Blood 191 mg/dL (70-99); Phosphorus, Blood 3.1 mg/dL (2.5-4.9); Potassium, Blood 4.3 mmol/L (3.5-5.5); Sodium, Blood 138 mmol/L (136-145)
--- NOTE | 2019-11-21 05:00 | NUR ---
patient admitted for COPD exacerbation and transferred from ICU to PCU on November 19 I assumed care for this patient around 7 PM. Patient remained stable and on BiPAP throughout most of the shift with oxygen saturations in the mid 90s. Patient denies chest pain, chest pressure, or shortness of breath; no other cardio pulmonary symptoms at this time. No acute changes overnight.
[2019-11-21 05:34] LABS: PCO2 Arterial 41.3 mmHg (35-45); PO2 Arterial 75.8 mmHg (80-100); pH Blood Arterial 7.42 (7.35-7.45)
--- NOTE | 2019-11-21 15:17 | NUR ---
PT CHANGED STATUS TO MEDICAL WITHOUT TELE. VITALS HAS BEEN STABLE FO THE SHIFT, HRR NSR/ST 90'S-100'S, BP SYSTOLIC 130'S DENIES CHEST PAIN/PRESSURE, SATS ABOVE 94% ON ROOMAIR, STILL HAS COUGH MILD SOB WITH EXERTION. PT AMBULATED WITH RT THIS MORNING SATS BEEN ABOVE 95% ON ROOMAIR. PT TO START PREDNISONE PO IN THE MORNING AND TO DISCHARGE IF PT NO EVENTS ON DROPPING O2 LEVELS DURING THE NIGHT. PT HAS BEEN RESTING IN BED FRIEND LAKEISHA CAME IN TO VISIT. HAD SHOWER DONE THIS AFTERNOON. PT RESTING IN BED WITH NO COMPLAINS ABLE TO MAKE NEEDS KNOWN, COOPERATIVE WITH CARES. WILL MONITOR
--- NOTE | 2019-11-21 15:50 | NUR ---
Upon receiving an admit referral for spiritual care, I visit patient. Patient struggles some to understand Italian but is able to tell me that he feels much better than when he arrived at hospital. Patient tells me his denominational background (Rastafari) and about his plan of care. I listen empathically and provide a calming presence and a blessing. Patient responds well and verbalizes appreciation.
--- NOTE | 2019-11-21 18:23 | NUR ---
PT TO ROOM 361 FROM PCU AT APPOX 1600. REPORT FROM RAGHAV MCKEON. PT IS ALERT AND ORIENT, FOLLOWS COMMANDS. LUNGS ARE CLEAR TO AUSCULTATION AND IS ON ROOM AIR. HRR, NOT ON TELEMETRY. PT HAS BEEN AMBULATING IN ROOM/BATHROOM INDEPENDTLY.IV IS SALINE LOCKED AND DRESSING IS C/D/I. PT TOLERATED DINNER WELL. PT DECLINES ANY CONCERNS OR NEEDS. ORIENTED PT TO NEW ROOM.
--- NOTE | 2019-11-22 04:46 | NUR ---
SHIFT SUMMARY PT A/OX4. NO ACUTE CHANGES THIS SHIFT. VSS WITH HR 90-100 BPM. APPEARS TO HAVE SLEPT WELL. SLEEP STUDY CURRENTLY IN PROGRESS. DENIED SOB OR CP. EMILY PO INTAKE. ABLE TO MAKE NEEDS KNOWN. PT APPEARS TO BE CURRENTLY SLEEPING COMFORTABLY IN BED. WILL CONT TO MONITOR AND GIVE REPORT TO ONCOMING RN.
[2019-11-22 05:24] LABS: PCO2 Arterial 38.4 mmHg (35-45); PO2 Arterial 70.2 mmHg (80-100); pH Blood Arterial 7.44 (7.35-7.45)
[2019-11-22] MEDS ORDERED: Aspir 8181 MG PO (11:20)
[2019-11-22] MEDS ORDERED: FLUT1DIS8 INH (11:22)
[2019-11-22] MEDS ORDERED: GUAI600T33 PO (11:26)
[2019-11-22] MEDS ORDERED: IPRAT-ALBUT 0.5-3 ML INH (11:27)
[2019-11-22] MEDS ORDERED: Prednisone10 MG PO (11:29)
[2019-11-22] MEDS ORDERED: ACIDOPHILUS1 EAC3 PO (11:30)
[2019-11-22] MEDS ORDERED: LEVFLO500 PO (11:31)
--- NOTE | 2019-11-22 13:00 | NUR ---
DISCHARGE INSTRUCTIONS GONE OVER WITH PT. INSTRUCTED PT ON NEBULIZER MACHINE AND THAT IT WILL BE DELIVERED AND NEW MEDICATIONS. PT STATED UNDERSTANDING. DISCHARGE INSTRUCTIONS WERE PRINTED IN [place] PER PT REQUEST FOR BETTER UNDERSTANDING. BELONGINGS GATHERED AND GIVEN TO PT. PT ESCORTED OUT VIA WHEEL CHAIR BY RONNA LOZADA. PT'S FRIEND DROVE PT HOME.
== END 2019-11-22 13:05 | disposition home or self-care (01) | DRG 189 ==
LOC: ER 01:08 → ICUW 03:51 → PCU 03:51 → ICUE 03:51 → PCU 17:32 → MEDS 11-21 16:11 → ENPENDDIS 11-22 10:00 → MEDS 11-22 13:05
PROVIDERS: Emergency Medicine; Internal Medicine; ADMIT Internal Medicine
PROC: 8E0ZXY6 Isolation (ICD-10-PCS; principal; 2019-11-20)
PROC: 5A09357 Assistance with Respiratory Ventilation, Less than 24 Consecutive Hours, Continuous Positive Airway Pressure (ICD-10-PCS; 2019-11-20)
DX: J96.01 Acute respiratory failure with hypoxia (principal); J44.1 Chronic obstructive pulmonary disease with (acute) exacerbation; R65.10 Systemic inflammatory response syndrome (SIRS) of non-infectious origin without acute organ dysfunction; J96.02 Acute respiratory failure with hypercapnia; Z79.82 Long term (current) use of aspirin; Z79.84 Long term (current) use of oral hypoglycemic drugs; E78.5 Hyperlipidemia, unspecified; K21.9 Gastro-esophageal reflux disease without esophagitis; I10 Essential (primary) hypertension; J44.9 Chronic obstructive pulmonary disease, unspecified; G47.33 Obstructive sleep apnea (adult) (pediatric); Z95.2 Presence of prosthetic heart valve; Z87.891 Personal history of nicotine dependence; E87.5 Hyperkalemia; N40.0 Benign prostatic hyperplasia without lower urinary tract symptoms; Z20.828 Contact with and (suspected) exposure to other viral communicable diseases; I16.0 Hypertensive urgency; I27.20 Pulmonary hypertension, unspecified
CPT/HCPCS: 0099U; 36415; 36600; 71045; 80053; 80069; 82803; 82947; 83036; 83735; 83880; 84145; 84484; 85025; 93005; 93010; 93306; 94640; 94660; 94664; 94667; 94760; 94761; 94762; 96365; 96375; 98960; 99285-25; A9270-GY; J1650; J1940; J1956; J2930; J7512; U0002

== ENCOUNTER 2020-02-07 17:53 | Inpatient (IN) | payer MEDICARE, OTHER ==
[~2020-02-07] VITALS: Ht 165.1 cm; Wt 90.0 kg
[~2020-02-07 17:53] MED LIST changes: +ACIDOPHILUS1 EAC3 PO; +ALMACONE SUSPE355 ML PO; +AZIT250 PO; +Aspir 8181 MG PO; -CHOL10002 PO; +DILT120ERA PO; +FLUT1DIS8 INH; +GUAI600T33 PO; +IPRAT-ALBUT 0.5-3 ML INH; +Prednisone10 MG PO; +VITAMIN D31000 UNI1 PO
[2020-02-07 18:30] LABS: BASOPHILS ABSOLUTE AUTO 0.07 K/mm3 (0.00-0.23); BASOPHILS PERCENT AUTO 1 % (0-2); EOSINOPHILS ABSOLUTE AUTO 0.54 K/mm3 (0.00-0.68); EOSINOPHILS PERCENT AUTO 6 % (0-6); Hematocrit 45.3 % (37.0-53.0); Hemoglobin 14.4 g/dL (13.5-17.5); IMMATURE GRAN ABSOLUTE AUTO 0.05 K/mm3 (0.00-0.10); IMMATURE GRAN PERCENT AUTO 1 % (0-1); LYMPHOCYTES PERCENT AUTO 33 % (21-46); MONOCYTES ABSOLUTE AUTO 0.93 K/mm3 (0.16-1.47); MONOCYTES PERCENT AUTO 10 % (4-13); Mean Corpuscular HGB 29.3 pg (26.0-34.0); Mean Corpuscular HGB Conc 31.8 g/dL (31.5-36.5); Mean Corpuscular Volume 92 fL (80-100); Mean Platelet Volume 10.3 fL (9.1-12.4); NEUTROPHILS PERCENT AUTO 50 % (41-73); Platelet Count 179 K/mm3 (150-400); RDW Coefficient Variation 14.5 % (11.7-14.2); RDW Standard Deviation 49.1 fL (35.1-46.3); Red Blood Cell Count 4.91 M/mm3 (4.30-5.90); White Blood Cell Count 9.29 K/mm3 (4.00-11.30)
[2020-02-07 19:01] LABS: Alanine Aminotransfer (ALT/SGP 19 U/L (12-78); Albumin, Blood 3.5 g/dL (3.4-5.0); Albumin/Globulin Ratio 0.9 (0.8-1.8); Alk Phos 91 U/L (50-136); Anion Gap 7 mmol/L (6-16); Aspartate Aminotrans (AST/SGOT 15 U/L (12-37); Bilirubin, Total 0.3 mg/dL (0.1-1.0); Blood Urea Nitrogen 17 mg/dL (8-24); Bun/Creatinine Ratio 15.3 (12.0-20.0); CO2, Blood 26 mmol/L (21-32); Chloride, Blood 107 mmol/L (98-108); Creatinine, Blood 1.11 mg/dL (0.60-1.20); Globulin, Blood 3.8 g/dL (2.2-4.0); Glomerular Filtration Rate >60 (60-); Glucose, Blood 103 mg/dL (70-99); Potassium, Blood 4.1 mmol/L (3.5-5.5); Sodium, Blood 140 mmol/L (136-145); Total Protein, Blood 7.3 g/dL (6.4-8.2)
[2020-02-07 19:03] LABS: Troponin I 0.213 ng/mL (0.000-0.040)
[2020-02-07] MEDS ORDERED: ATROVENT HFA12.9 GM INH (19:39)
[2020-02-07] MEDS ORDERED: SPIRIVA RESPIMAT4 G3 INH (19:39)
[2020-02-07] MEDS ORDERED: METFORMIN HCL500 M2 PO (19:39)
[2020-02-07] MEDS ORDERED: PRILOSEC OTC20 MG PO (19:40)
[2020-02-07] MEDS ORDERED: Diltiazem ER120 M2 PO (19:40)
[2020-02-07] MEDS ORDERED: LOSA50 PO (19:41)
--- NOTE | 2020-02-07 20:42 | NUR ---
transfer report from CONTINUOUS WASHER OPERATORRAGHAV Nielson on 85 year old MAle being admitted obs for copd excab. on tele. started on steroids & oxygen 2 l with improved dyspnea. Await admission.
[2020-02-08 02:24] LABS: BASOPHILS ABSOLUTE AUTO 0.06 K/mm3 (0.00-0.23); BASOPHILS PERCENT AUTO 1 % (0-2); EOSINOPHILS ABSOLUTE AUTO 0.01 K/mm3 (0.00-0.68); EOSINOPHILS PERCENT AUTO 0 % (0-6); Hematocrit 43.8 % (37.0-53.0); Hemoglobin 14.1 g/dL (13.5-17.5); IMMATURE GRAN ABSOLUTE AUTO 0.06 K/mm3 (0.00-0.10); IMMATURE GRAN PERCENT AUTO 1 % (0-1); LYMPHOCYTES ABSOLUTE AUTO 0.79 K/mm3 (0.84-5.20); LYMPHOCYTES PERCENT AUTO 11 % (21-46); MONOCYTES ABSOLUTE AUTO 0.08 K/mm3 (0.16-1.47); MONOCYTES PERCENT AUTO 1 % (4-13); Mean Corpuscular HGB 29.7 pg (26.0-34.0); Mean Corpuscular HGB Conc 32.2 g/dL (31.5-36.5); Mean Corpuscular Volume 92 fL (80-100); Mean Platelet Volume 10.6 fL (9.1-12.4); NEUTROPHILS ABSOLUTE AUTO 6.53 K/mm3 (1.96-9.15); NEUTROPHILS PERCENT AUTO 87 % (41-73); Platelet Count 167 K/mm3 (150-400); RDW Coefficient Variation 14.1 % (11.7-14.2); RDW Standard Deviation 47.8 fL (35.1-46.3); Red Blood Cell Count 4.74 M/mm3 (4.30-5.90); White Blood Cell Count 7.53 K/mm3 (4.00-11.30)
[2020-02-08 02:44] LABS: Alanine Aminotransfer (ALT/SGP 19 U/L (12-78); Albumin, Blood 3.2 g/dL (3.4-5.0); Albumin/Globulin Ratio 0.9 (0.8-1.8); Alk Phos 89 U/L (50-136); Anion Gap 6 mmol/L (6-16); Aspartate Aminotrans (AST/SGOT 17 U/L (12-37); Bilirubin, Total 0.4 mg/dL (0.1-1.0); Blood Urea Nitrogen 16 mg/dL (8-24); Bun/Creatinine Ratio 15.8 (12.0-20.0); CO2, Blood 28 mmol/L (21-32); CPK Creatine Kinase 178 U/L (39-308); Calcium, Blood 8.9 mg/dL (8.5-10.1); Chloride, Blood 107 mmol/L (98-108); Creatinine, Blood 1.01 mg/dL (0.60-1.20); Globulin, Blood 3.6 g/dL (2.2-4.0); Glomerular Filtration Rate >60 (60-); Glucose, Blood 282 mg/dL (70-99); Potassium, Blood 4.6 mmol/L (3.5-5.5); Sodium, Blood 141 mmol/L (136-145); Total Protein, Blood 6.8 g/dL (6.4-8.2); Troponin I 0.215 ng/mL (0.000-0.040)
--- NOTE | 2020-02-08 03:37 | NUR ---
85 year old Male with hx of aortic valve replacement COPD & resp failure admitted for dyspnea. PT has hx of CARMELA not on cpap or oxygen at baseline on 2 l NC with helpful effect for SOB. PT has fltter valve & IS at bedside but declined to do either tonight. PRN neb tx for dyspnea with helpful effect, Cough productive sputum sample sent. Hypertensive when first arrived from ER better when rechecked. On tele monitor tachycardic. On IV steroids to tx lung inflammation.
--- NOTE | 2020-02-08 08:40 | NUR ---
PT PLEASASNT COOP A.OX3 TALKATIVE. DENIES PAIN. H/R REG, NO MURMER NOTED. PER TELE S TACH AT 106. LUNGS DIM T/O. RESP EASY, UNLABORED. ON 2L O2. BT X3 LAST BM TODAY VOIDS PER BATHROOM INDEPENDANT IN ROOM. BED IN LOW POSITION, CALL LITE IN REACH, CALLS APPROP
[2020-02-08 10:23] LABS: Troponin I 0.203 ng/mL (0.000-0.040)
[2020-02-08 16:57] LABS: Adenovirus Not Detected (NOT DETECT); Coronavirus 229E Not Detected (NOT DETECT); Coronavirus HKU1 Not Detected (NOT DETECT); Coronavirus NL63 Not Detected (NOT DETECT); Coronavirus OC43 Not Detected (NOT DETECT); Human Metapneumovirus Not Detected (NOT DETECT); Human Rhinovirus/Enterovirus Not Detected (NOT DETECT); Influenza A/2009-H1 Not Detected (NOT DETECT); Influenza A/H1 Not Detected (NOT DETECT); Influenza A/H3 Not Detected (NOT DETECT); Influenza B Not Detected (NOT DETECT); Parainfluenza Virus 1 Not Detected (NOT DETECT); Parainfluenza Virus 2 Not Detected (NOT DETECT); SARS-Cov-2 (COVID-19), BioFire Not Detected (NOT DETECT)
[2020-02-08 16:58] LABS: Bordetella pertussis Not Detected (NOT DETECT); Chlamydophila pneumoniae Not Detected (NOT DETECT); Mycoplasma pneumoniae Not Detected (NOT DETECT); Parainfluenza Virus 3 Not Detected (NOT DETECT); Parainfluenza Virus 4 Not Detected (NOT DETECT); Respiratory Syncytial Virus Not Detected (NOT DETECT)
--- NOTE | 2020-02-08 17:57 | NUR ---
PT PLEASANT TODAY. NO C/O PAIN. REFERRAL CONSULT MADE FOR PULMONARY. WAS SEEN IN ROOM. PT HAS HAD FAMILY /FRIEND IN TO VISIT TODAY. NO NEW CONCERNS AT THIS TIME. BED IN LOW POSITION, CALL LITE IN REACH, CALLS APPROP
--- NOTE | 2020-02-09 04:35 | NUR ---
SHIFT SUMMARY PATIENT HAD NO ACUTE CHANGES OBSERVED. RT REPORTED BREATHING TX CHANGED TO Q4 PER DR ORDERS THIS SHIFT. AXOX 4 AND INDEPENDENT IN ROOM. PIV REMAINS INTACT. CBG 262. TAPE SEWING MACHINE OPERATOR REPORTS NSR 94. SPUTUM SAMPLE COLLECTED AND SENT TO LAB. VSS/AFEBRILE. DENIES PAIN AND N/V. MELATONIN 5 MG ORDERED FOR INSOMNIA BY HOSPITALIST DR WILLSON. COOPERATIVE WITH CARE. CALL LIGHT IN REACH. BED IN LOWEST POSITION. WILL CONTINUE TO MONITOR UNTIL DAY SHIFT NURSE ASSUMES CARE.
[2020-02-09 05:15] LABS: BASOPHILS ABSOLUTE AUTO 0.03 K/mm3 (0.00-0.23); BASOPHILS PERCENT AUTO 0 % (0-2); EOSINOPHILS PERCENT AUTO 0 % (0-6); Hematocrit 40.7 % (37.0-53.0); Hemoglobin 13.1 g/dL (13.5-17.5); IMMATURE GRAN ABSOLUTE AUTO 0.18 K/mm3 (0.00-0.10); IMMATURE GRAN PERCENT AUTO 1 % (0-1); LYMPHOCYTES ABSOLUTE AUTO 1.56 K/mm3 (0.84-5.20); LYMPHOCYTES PERCENT AUTO 10 % (21-46); MONOCYTES ABSOLUTE AUTO 0.98 K/mm3 (0.16-1.47); MONOCYTES PERCENT AUTO 6 % (4-13); Mean Corpuscular HGB 29.5 pg (26.0-34.0); Mean Corpuscular HGB Conc 32.2 g/dL (31.5-36.5); Mean Corpuscular Volume 92 fL (80-100); NEUTROPHILS ABSOLUTE AUTO 13.69 K/mm3 (1.96-9.15); NEUTROPHILS PERCENT AUTO 83 % (41-73); Platelet Count 166 K/mm3 (150-400); RDW Coefficient Variation 14.3 % (11.7-14.2); RDW Standard Deviation 47.5 fL (35.1-46.3); Red Blood Cell Count 4.44 M/mm3 (4.30-5.90); White Blood Cell Count 16.44 K/mm3 (4.00-11.30)
[2020-02-09 06:12] LABS: Anion Gap 8 mmol/L (6-16); Blood Urea Nitrogen 23 mg/dL (8-24); CO2, Blood 26 mmol/L (21-32); Calcium, Blood 8.9 mg/dL (8.5-10.1); Chloride, Blood 108 mmol/L (98-108); Creatinine, Blood 0.96 mg/dL (0.60-1.20); Glomerular Filtration Rate >60 (60-); Glucose, Blood 198 mg/dL (70-99); Potassium, Blood 4.1 mmol/L (3.5-5.5); Sodium, Blood 142 mmol/L (136-145)
--- NOTE | 2020-02-09 17:06 | NUR ---
SHIFT SUMMARY STEROIDS DE-ESCALATED PER MD ORDERS AND ANTIBX STOPPED. IF PT DOES WELL OVERNIGHT, WILL DISCHARGE TOMORROW. ON ROOM AIR SINCE 1145 WITH O2 SATURATIONS TRENDING > OR = 90. ROUNDED WITH DR. MÁRQUEZ AT 1145 WHO STATED OKAY TO KEEP SATS > OR = 88%. NOTIFIED MD AT THAT TIME THAT WBC'S ARE UP TO 16 TODAY FROM 8.
--- NOTE | 2020-02-10 04:00 | NUR ---
SHIFT SUMMARY PATIENT HAD NO ACUTE CHANGES OBSERVED. AXOX 4 AND INDEPENDENT IN THE ROOM. NOW ON ROOM AIR. RT IN FOR BREATHING TX T/O SHIFT. PIV REMAINS INTACT. WAD COMPRESSOR OPERATOR ADJUSTER REPORTS NSR 87. VSS/AFEBRILE. DENIES PAIN, SOB, AND N/V. PATIENT REPORTS BREATHING IMPROVING. COOPERATIVE WITH CARE. CALL LIGHT IN REACH. BED IN LOWEST POSITION. WILL CONTINUE TO MONITOR UNTIL DAY SHIFT NURSE ASSUMES CARE.
[2020-02-10 05:16] LABS: BASOPHILS ABSOLUTE AUTO 0.03 K/mm3 (0.00-0.23); BASOPHILS PERCENT AUTO 0 % (0-2); EOSINOPHILS PERCENT AUTO 0 % (0-6); Hemoglobin 12.8 g/dL (13.5-17.5); IMMATURE GRAN ABSOLUTE AUTO 0.15 K/mm3 (0.00-0.10); IMMATURE GRAN PERCENT AUTO 1 % (0-1); LYMPHOCYTES ABSOLUTE AUTO 1.62 K/mm3 (0.84-5.20); LYMPHOCYTES PERCENT AUTO 11 % (21-46); MONOCYTES ABSOLUTE AUTO 1.04 K/mm3 (0.16-1.47); MONOCYTES PERCENT AUTO 7 % (4-13); Mean Corpuscular HGB 29.4 pg (26.0-34.0); Mean Corpuscular Volume 92 fL (80-100); Mean Platelet Volume 10.6 fL (9.1-12.4); NEUTROPHILS ABSOLUTE AUTO 12.31 K/mm3 (1.96-9.15); NEUTROPHILS PERCENT AUTO 81 % (41-73); Platelet Count 169 K/mm3 (150-400); RDW Coefficient Variation 14.8 % (11.7-14.2); RDW Standard Deviation 50.3 fL (35.1-46.3); Red Blood Cell Count 4.35 M/mm3 (4.30-5.90); White Blood Cell Count 15.15 K/mm3 (4.00-11.30)
[2020-02-10 05:46] LABS: Anion Gap 8 mmol/L (6-16); Blood Urea Nitrogen 30 mg/dL (8-24); CO2, Blood 27 mmol/L (21-32); Calcium, Blood 8.5 mg/dL (8.5-10.1); Chloride, Blood 108 mmol/L (98-108); Creatinine, Blood 1.11 mg/dL (0.60-1.20); Glomerular Filtration Rate >60 (60-); Glucose, Blood 158 mg/dL (70-99); Potassium, Blood 4.3 mmol/L (3.5-5.5); Sodium, Blood 143 mmol/L (136-145)
[2020-02-10] MEDS ORDERED: Prednisone20 MG PO (12:02)
== END 2020-02-10 13:15 | disposition home or self-care (01) | DRG 189 ==
LOC: ER 17:53 → MEDS 17:54 → ENPENDDIS 02-10 11:24 → MEDS 02-10 13:15
PROVIDERS: Family Medicine; Internal Medicine; Physician Assistant; ADMIT Internal Medicine
DX: J96.01 Acute respiratory failure with hypoxia (principal); J44.1 Chronic obstructive pulmonary disease with (acute) exacerbation; Z20.828 Contact with and (suspected) exposure to other viral communicable diseases; K21.9 Gastro-esophageal reflux disease without esophagitis; E11.9 Type 2 diabetes mellitus without complications; E78.5 Hyperlipidemia, unspecified; G47.33 Obstructive sleep apnea (adult) (pediatric); I10 Essential (primary) hypertension; M19.90 Unspecified osteoarthritis, unspecified site; N40.0 Benign prostatic hyperplasia without lower urinary tract symptoms; Z86.73 Personal history of transient ischemic attack (TIA), and cerebral infarction without residual deficits; Z87.891 Personal history of nicotine dependence; Z79.82 Long term (current) use of aspirin; Z79.84 Long term (current) use of oral hypoglycemic drugs; Z79.51 Long term (current) use of inhaled steroids
CPT/HCPCS: 0202U; 36415; 71045; 80048; 80053; 82550; 82947; 83880; 84484; 85025; 87070; 87205; 93005; 93010; 94640; 94667; 94760; 96374; 99285-25; A9270-GY; J1650; J2930; J7030; J7512

== ENCOUNTER 2020-03-04 07:17 | Emergency (ER) | payer MEDICARE, OTHER ==
[~2020-03-04] VITALS: Ht 165.1 cm; Wt 88.9 kg
[~2020-03-04 07:17] MED LIST changes: +ATROVENT HFA12.9 GM INH; +Diltiazem ER120 M2 PO; +METFORMIN HCL500 M2 PO; +PRILOSEC OTC20 MG PO; +Prednisone20 MG PO; +SPIRIVA RESPIMAT4 G3 INH
[2020-03-04 07:39] LABS: BASOPHILS ABSOLUTE AUTO 0.08 K/mm3 (0.00-0.23); BASOPHILS PERCENT AUTO 1 % (0-2); EOSINOPHILS ABSOLUTE AUTO 0.75 K/mm3 (0.00-0.68); EOSINOPHILS PERCENT AUTO 8 % (0-6); Hematocrit 45.3 % (37.0-53.0); Hemoglobin 14.3 g/dL (13.5-17.5); IMMATURE GRAN ABSOLUTE AUTO 0.02 K/mm3 (0.00-0.10); IMMATURE GRAN PERCENT AUTO 0 % (0-1); LYMPHOCYTES ABSOLUTE AUTO 2.63 K/mm3 (0.84-5.20); LYMPHOCYTES PERCENT AUTO 29 % (21-46); MONOCYTES ABSOLUTE AUTO 0.71 K/mm3 (0.16-1.47); MONOCYTES PERCENT AUTO 8 % (4-13); Mean Corpuscular HGB 29.7 pg (26.0-34.0); Mean Corpuscular HGB Conc 31.6 g/dL (31.5-36.5); Mean Corpuscular Volume 94 fL (80-100); Mean Platelet Volume 10.2 fL (9.1-12.4); NEUTROPHILS ABSOLUTE AUTO 4.76 K/mm3 (1.96-9.15); NEUTROPHILS PERCENT AUTO 53 % (41-73); Platelet Count 196 K/mm3 (150-400); RDW Standard Deviation 48.6 fL (35.1-46.3); Red Blood Cell Count 4.81 M/mm3 (4.30-5.90); White Blood Cell Count 8.95 K/mm3 (4.00-11.30)
[2020-03-04 08:14] LABS: Alanine Aminotransfer (ALT/SGP 21 U/L (12-78); Albumin, Blood 3.5 g/dL (3.4-5.0); Alk Phos 87 U/L (50-136); Anion Gap 4 mmol/L (6-16); Aspartate Aminotrans (AST/SGOT 10 U/L (12-37); Bilirubin, Total 0.3 mg/dL (0.1-1.0); Blood Urea Nitrogen 13 mg/dL (8-24); Bun/Creatinine Ratio 14.3 (12.0-20.0); CO2, Blood 29 mmol/L (21-32); Calcium, Blood 8.9 mg/dL (8.5-10.1); Chloride, Blood 111 mmol/L (98-108); Creatinine, Blood 0.91 mg/dL (0.60-1.20); Globulin, Blood 3.5 g/dL (2.2-4.0); Glomerular Filtration Rate >60 (60-); Glucose, Blood 150 mg/dL (70-99); Potassium, Blood 3.9 mmol/L (3.5-5.5); Sodium, Blood 144 mmol/L (136-145)
[2020-03-04 08:26] LABS: Troponin I 0.603 ng/mL (0.000-0.040)
[2020-03-04] MEDS ORDERED: AZIT250 PO ×2 (09:58→10:10)
[2020-03-04] MEDS ORDERED: PRED20 PO ×2 (09:58→10:10)
[2020-03-04] MEDS ORDERED: AMOCLA875 PO ×2 (09:58→10:10)
== END 2020-03-04 10:14 | disposition home or self-care (01) ==
LOC: ER 07:17
PROVIDERS: Emergency Medicine
DX: J44.0 Chronic obstructive pulmonary disease with (acute) lower respiratory infection (principal); J18.9 Pneumonia, unspecified organism; J98.01 Acute bronchospasm; R77.8 Other specified abnormalities of plasma proteins; E78.5 Hyperlipidemia, unspecified; I10 Essential (primary) hypertension; K21.9 Gastro-esophageal reflux disease without esophagitis; J44.9 Chronic obstructive pulmonary disease, unspecified; N40.0 Benign prostatic hyperplasia without lower urinary tract symptoms; Z79.82 Long term (current) use of aspirin; Z79.4 Long term (current) use of insulin; Z79.899 Other long term (current) drug therapy; Z79.52 Long term (current) use of systemic steroids; Z87.891 Personal history of nicotine dependence
CPT/HCPCS: 36415; 71045; 80053; 84484; 85025; 93005; 93010; 96365; 96375; 99285-25; J0696; J2930

== ENCOUNTER 2020-05-14 22:16 | Emergency (ER) | payer MEDICARE, OTHER ==
[~2020-05-14] VITALS: Ht 165.1 cm; Wt 86.2 kg
[~2020-05-14 22:16] MED LIST changes: +AMOCLA875 PO; +Aspirin EC81 MG PO; +METF500 PO; +Vitamin D2000 UNIT PO
[2020-05-14] MEDS ORDERED: Zithromax250 MG PO (23:56)
[2020-05-14] MEDS ORDERED: Prednisone50 MG PO (23:57)
== END 2020-05-15 00:09 | disposition home or self-care (01) ==
LOC: ER 22:16
DX: J44.1 Chronic obstructive pulmonary disease with (acute) exacerbation (principal); E11.9 Type 2 diabetes mellitus without complications; Z79.84 Long term (current) use of oral hypoglycemic drugs; Z79.82 Long term (current) use of aspirin; Z79.52 Long term (current) use of systemic steroids; Z79.899 Other long term (current) drug therapy; Z87.891 Personal history of nicotine dependence
CPT/HCPCS: 36415; 71045; 84484; 93005; 93010; 94640; 99285-25; J7512

== ENCOUNTER 2020-05-17 17:47 | Emergency (ER) | payer MEDICARE, OTHER ==
[~2020-05-17] VITALS: Ht 165.1 cm; Wt 88.5 kg
[~2020-05-17 17:47] MED LIST changes: +Zithromax250 MG PO
[2020-05-17 18:12] LABS: BASOPHILS ABSOLUTE AUTO 0.03 K/mm3 (0.00-0.23); BASOPHILS PERCENT AUTO 0 % (0-2); EOSINOPHILS PERCENT AUTO 0 % (0-6); Hemoglobin 14.5 g/dL (13.5-17.5); IMMATURE GRAN ABSOLUTE AUTO 0.05 K/mm3 (0.00-0.10); IMMATURE GRAN PERCENT AUTO 1 % (0-1); LYMPHOCYTES ABSOLUTE AUTO 1.05 K/mm3 (0.84-5.20); LYMPHOCYTES PERCENT AUTO 12 % (21-46); MONOCYTES ABSOLUTE AUTO 0.55 K/mm3 (0.16-1.47); MONOCYTES PERCENT AUTO 6 % (4-13); Mean Corpuscular HGB 29.3 pg (26.0-34.0); Mean Corpuscular HGB Conc 32.2 g/dL (31.5-36.5); Mean Corpuscular Volume 91 fL (80-100); Mean Platelet Volume 10.7 fL (9.1-12.4); NEUTROPHILS ABSOLUTE AUTO 7.27 K/mm3 (1.96-9.15); NEUTROPHILS PERCENT AUTO 81 % (41-73); Platelet Count 220 K/mm3 (150-400); RDW Coefficient Variation 12.9 % (11.7-14.2); Red Blood Cell Count 4.95 M/mm3 (4.30-5.90); White Blood Cell Count 8.95 K/mm3 (4.00-11.30)
[2020-05-17 18:38] LABS: Alanine Aminotransfer (ALT/SGP 19 U/L (12-78); Albumin, Blood 3.6 g/dL (3.4-5.0); Alk Phos 85 U/L (50-136); Anion Gap 8 mmol/L (6-16); Aspartate Aminotrans (AST/SGOT 18 U/L (12-37); Bilirubin, Total 0.3 mg/dL (0.1-1.0); Blood Urea Nitrogen 16 mg/dL (8-24); Bun/Creatinine Ratio 18.6 (12.0-20.0); CO2, Blood 24 mmol/L (21-32); Calcium, Blood 9.5 mg/dL (8.5-10.1); Chloride, Blood 107 mmol/L (98-108); Creatinine, Blood 0.86 mg/dL (0.60-1.20); Globulin, Blood 3.6 g/dL (2.2-4.0); Glomerular Filtration Rate >60 (60-); Glucose, Blood 231 mg/dL (70-99); Potassium, Blood 4.5 mmol/L (3.5-5.5); Sodium, Blood 139 mmol/L (136-145); Total Protein, Blood 7.2 g/dL (6.4-8.2); Troponin I 0.209 ng/mL (0.000-0.040)
[2020-05-17 20:55] LABS: Influenza A, PCR Negative (NEGATIVE); Influenza B, PCR Negative (NEGATIVE); Resp Syncytial Virus, PCR Negative (NEGATIVE); SARS-Cov-2 (COVID-19) PCR, MMC Negative (NEGATIVE)
[2020-05-17] MEDS ORDERED: AZIT250 PO (22:21)
[2020-05-17] MEDS ORDERED: AMOCLA875 PO (22:21)
== END 2020-05-17 22:43 | disposition home or self-care (01) ==
LOC: ER 17:47
PROVIDERS: Emergency Medicine; Physician Assistant
DX: U07.1 COVID-19 (principal); J44.0 Chronic obstructive pulmonary disease with (acute) lower respiratory infection; J12.89 Other viral pneumonia; J44.1 Chronic obstructive pulmonary disease with (acute) exacerbation; Z79.84 Long term (current) use of oral hypoglycemic drugs; Z79.82 Long term (current) use of aspirin; Z79.899 Other long term (current) drug therapy
CPT/HCPCS: 0241U; 36415; 71045; 80053; 83880; 84484; 85025; 93005; 93010; 94640; 96360; 99285-25; J7030

== ENCOUNTER 2020-09-11 13:22 | Day surgery (SDC) | payer MEDICARE, OTHER | END 2020-09-11 23:17 | disposition home or self-care (01) | LOC: WOUND 13:22 | DX: S91.301A Unspecified open wound, right foot, initial encounter (principal); X58.XXXA Exposure to other specified factors, initial encounter; L97.521 Non-pressure chronic ulcer of other part of left foot limited to breakdown of skin; J44.9 Chronic obstructive pulmonary disease, unspecified; I10 Essential (primary) hypertension; Z87.891 Personal history of nicotine dependence | CPT/HCPCS: 87070; 87075; 87205; A9270; G0463 ==

== ENCOUNTER 2020-09-20 00:36 | Day surgery (SDC) | payer MEDICARE, OTHER | END 2020-09-20 23:22 | disposition home or self-care (01) | LOC: WOUND 00:36 | DX: L97.521 Non-pressure chronic ulcer of other part of left foot limited to breakdown of skin (principal) | CPT/HCPCS: A9270; G0463 ==

== ENCOUNTER 2020-10-04 01:57 | Day surgery (SDC) | payer MEDICARE, OTHER | END 2020-10-04 23:14 | disposition home or self-care (01) | LOC: WOUND 01:57 | DX: L97.521 Non-pressure chronic ulcer of other part of left foot limited to breakdown of skin (principal); L40.3 Pustulosis palmaris et plantaris | CPT/HCPCS: G0463 ==

== ENCOUNTER → 2021-05-17 | Outpatient (CLI) | payer MEDICARE, OTHER ==
[2021-05-18 13:40] LABS: Stool Occult Bld Immuno 1 Negative (NEGATIVE)
== END | disposition home or self-care (01) ==
LOC: LAB 12:22 → LAB SHORT 12:22
PROVIDERS: Family Medicine
DX: Z12.11 Encounter for screening for malignant neoplasm of colon (principal)
CPT/HCPCS: G0328

== ENCOUNTER 2021-06-09 09:57 | Emergency (ER) | payer MEDICARE, OTHER ==
[~2021-06-09] VITALS: Ht 165.1 cm; Wt 88.9 kg
[2021-06-09 10:24] LABS: BASOPHILS ABSOLUTE AUTO 0.05 K/mm3 (0.00-0.23); BASOPHILS PERCENT AUTO 1 % (0-2); EOSINOPHILS ABSOLUTE AUTO 0.18 K/mm3 (0.00-0.68); EOSINOPHILS PERCENT AUTO 3 % (0-6); Hematocrit 47.4 % (37.0-53.0); Hemoglobin 15.3 g/dL (13.5-17.5); IMMATURE GRAN ABSOLUTE AUTO 0.02 K/mm3 (0.00-0.10); IMMATURE GRAN PERCENT AUTO 0 % (0-1); LYMPHOCYTES ABSOLUTE AUTO 2.23 K/mm3 (0.84-5.20); LYMPHOCYTES PERCENT AUTO 32 % (21-46); MONOCYTES ABSOLUTE AUTO 0.94 K/mm3 (0.16-1.47); MONOCYTES PERCENT AUTO 14 % (4-13); Mean Corpuscular HGB 28.7 pg (26.0-34.0); Mean Corpuscular HGB Conc 32.3 g/dL (31.5-36.5); Mean Corpuscular Volume 89 fL (80-100); NEUTROPHILS ABSOLUTE AUTO 3.46 K/mm3 (1.96-9.15); NEUTROPHILS PERCENT AUTO 50 % (41-73); Platelet Count 189 K/mm3 (150-400); RDW Coefficient Variation 13.8 % (11.7-14.2); RDW Standard Deviation 44.5 fL (35.1-46.3); Red Blood Cell Count 5.34 M/mm3 (4.30-5.90); White Blood Cell Count 6.88 K/mm3 (4.00-11.30)
[2021-06-09 10:43] LABS: Alanine Aminotransfer (ALT/SGP 28 U/L (12-78); Albumin, Blood 3.4 g/dL (3.4-5.0); Albumin/Globulin Ratio 0.8 (0.8-1.8); Alk Phos 95 U/L (50-136); Anion Gap 4 mmol/L (6-16); Aspartate Aminotrans (AST/SGOT 18 U/L (12-37); Bilirubin, Total 0.4 mg/dL (0.1-1.0); Blood Urea Nitrogen 11 mg/dL (8-24); Bun/Creatinine Ratio 11.7 (12.0-20.0); CO2, Blood 28 mmol/L (21-32); Calcium, Blood 8.9 mg/dL (8.5-10.1); Chloride, Blood 109 mmol/L (98-108); Creatinine, Blood 0.94 mg/dL (0.60-1.20); Glomerular Filtration Rate >60 (60-); Glucose, Blood 97 mg/dL (70-99); Potassium, Blood 4.2 mmol/L (3.5-5.5); Sodium, Blood 141 mmol/L (136-145); Total Protein, Blood 7.4 g/dL (6.4-8.2); Troponin I 0.326 ng/mL (0.000-0.040)
[2021-06-09 11:00] LABS: Influenza A, PCR NEGATIVE (NEGATIVE); Influenza B, PCR NEGATIVE (NEGATIVE); SARS-Cov-2 (COVID-19) PCR, MMC NEGATIVE (NEGATIVE)
[2021-06-09 11:01] LABS: Resp Syncytial Virus, PCR POSITIVE (NEGATIVE)
[2021-06-09] MEDS ORDERED: BREO ELLIPTA 21 EAC1 PO (11:08)
[2021-06-09] MEDS ORDERED: ALBU90OI INH (11:08)
[2021-06-09] MEDS ORDERED: SPIRIVA RESPIMAT4 G2 PO (11:08)
[2021-06-09] MEDS ORDERED: BENZ100A PO (11:21)
[2021-06-09] MEDS ORDERED: PRED20 PO (11:21)
== END 2021-06-09 13:20 | disposition home or self-care (01) ==
LOC: ER 09:57
PROVIDERS: Emergency Medicine
DX: J20.5 Acute bronchitis due to respiratory syncytial virus (principal); R77.8 Other specified abnormalities of plasma proteins; J44.9 Chronic obstructive pulmonary disease, unspecified; Z20.822 Contact with and (suspected) exposure to COVID-19; E78.5 Hyperlipidemia, unspecified; I10 Essential (primary) hypertension; K21.9 Gastro-esophageal reflux disease without esophagitis; N40.0 Benign prostatic hyperplasia without lower urinary tract symptoms; G47.33 Obstructive sleep apnea (adult) (pediatric); Z87.891 Personal history of nicotine dependence; Z79.899 Other long term (current) drug therapy; Z79.84 Long term (current) use of oral hypoglycemic drugs; Z79.82 Long term (current) use of aspirin
CPT/HCPCS: 0241U; 71046; 80053; 84484; 85025; 93005; 93010; 94640; J2930

== ENCOUNTER 2021-10-08 15:03 | Emergency (ER) | payer MEDICARE ==
[~2021-10-08] VITALS: Ht 165.1 cm; Wt 88.9 kg
[~2021-10-08 15:03] MED LIST changes: +BREO ELLIPTA 21 EAC1 PO; +SPIRIVA RESPIMAT4 G2 PO
[2021-10-08] MEDS ORDERED: Roxicodone5 MG PO (17:04)
[2021-10-08] MEDS ORDERED: ACETAMINOPHEN500 MG PO (17:04)
[2021-10-08] MEDS ORDERED: LIDO700A20 TOP (17:04)
== END 2021-10-08 17:59 | disposition home or self-care (01) ==
LOC: ER 15:03
DX: S22.32XA Fracture of one rib, left side, initial encounter for closed fracture (principal); N40.0 Benign prostatic hyperplasia without lower urinary tract symptoms; I10 Essential (primary) hypertension; E78.5 Hyperlipidemia, unspecified; J44.9 Chronic obstructive pulmonary disease, unspecified; K21.9 Gastro-esophageal reflux disease without esophagitis; W01.190A Fall on same level from slipping, tripping and stumbling with subsequent striking against furniture, initial encounter; Y92.009 Unspecified place in unspecified non-institutional (private) residence as the place of occurrence of the external cause; Z79.84 Long term (current) use of oral hypoglycemic drugs; Z79.52 Long term (current) use of systemic steroids; Z87.891 Personal history of nicotine dependence; Z95.2 Presence of prosthetic heart valve; Z79.899 Other long term (current) drug therapy; Z79.82 Long term (current) use of aspirin; Z79.51 Long term (current) use of inhaled steroids
CPT/HCPCS: 71101; A9270

== ENCOUNTER 2021-10-29 12:25 | Emergency (ER) | payer MEDICARE ==
[~2021-10-29] VITALS: Ht 165.1 cm; Wt 88.9 kg
[~2021-10-29 12:25] MED LIST changes: +ACETAMINOPHEN500 MG PO; +LIDO700A20 TOP; +Roxicodone5 MG PO
[2021-10-29] MEDS ORDERED: AMOCLA875 PO (15:31)
[2021-10-29] MEDS ORDERED: Flonase 0.05% N16 GM (15:31)
== END 2021-10-29 15:51 | disposition home or self-care (01) ==
LOC: ER 12:25
DX: J32.9 Chronic sinusitis, unspecified (principal); I10 Essential (primary) hypertension; J44.9 Chronic obstructive pulmonary disease, unspecified; E78.5 Hyperlipidemia, unspecified; Z79.899 Other long term (current) drug therapy; Z87.891 Personal history of nicotine dependence
CPT/HCPCS: 71046; 99283-25

== ENCOUNTER 2023-05-03 19:34 | Inpatient (IN) | payer MEDICARE, OTHER ==
[~2023-05-03] VITALS: Ht 165.1 cm; Wt 79.4 kg
[~2023-05-03 19:34] MED LIST changes: +AMLO5 PO; +CLOP75 PO; +FURO40 PO; +Flonase 0.05% N16 GM; +GABA300 PO; +Isosorbide Mono30 MG PO; +LISI5 PO; +POTA10T PO; +THERA-D2000 UNIT PO; +TRAZ50 PO; +TRELEGY ELLIPT1 EAC1 INH; -Vitamin D2000 UNIT PO
[2023-05-03 20:07] LABS: BASOPHILS ABSOLUTE AUTO 0.05 K/mm3 (0.00-0.23); BASOPHILS PERCENT AUTO 1 % (0-2); EOSINOPHILS PERCENT AUTO 3 % (0-6); Hematocrit 42.8 % (37.0-53.0); Hemoglobin 13.9 g/dL (13.5-17.5); IMMATURE GRAN ABSOLUTE AUTO 0.04 K/mm3 (0.00-0.10); IMMATURE GRAN PERCENT AUTO 0 % (0-1); LYMPHOCYTES ABSOLUTE AUTO 3.46 K/mm3 (0.84-5.20); LYMPHOCYTES PERCENT AUTO 33 % (21-46); MONOCYTES ABSOLUTE AUTO 1.12 K/mm3 (0.16-1.47); MONOCYTES PERCENT AUTO 11 % (4-13); Mean Corpuscular HGB Conc 32.5 g/dL (31.5-36.5); Mean Corpuscular Volume 89 fL (80-100); Mean Platelet Volume 10.3 fL (9.1-12.4); NEUTROPHILS ABSOLUTE AUTO 5.45 K/mm3 (1.96-9.15); NEUTROPHILS PERCENT AUTO 52 % (41-73); Platelet Count 252 K/mm3 (150-400); RDW Coefficient Variation 14.3 % (11.7-14.2); RDW Standard Deviation 46.4 fL (35.1-46.3); Red Blood Cell Count 4.79 M/mm3 (4.30-5.90); White Blood Cell Count 10.42 K/mm3 (4.00-11.30)
[2023-05-03 20:25] LABS: Albumin, Blood 3.5 g/dL (3.4-5.0); Albumin/Globulin Ratio 0.9 (0.8-1.8); Bilirubin, Total 0.3 mg/dL (0.1-1.0); Bun/Creatinine Ratio 18.5 (12.0-20.0); Creatinine, Blood 1.35 mg/dL (0.60-1.20); Globulin, Blood 4.1 g/dL (2.2-4.0); Potassium, Blood 4.5 mmol/L (3.5-5.5); Total Protein, Blood 7.6 g/dL (6.4-8.2)
[2023-05-03 22:23] LABS: Hematocrit 37.9 % (37.0-53.0); Hemoglobin 12.5 g/dL (13.5-17.5)
[2023-05-03 23:03] VITALS: BP 112/49
[2023-05-03] MEDS ORDERED: SPIRIVA RESPIMAT4 G3 INH (23:08)
[2023-05-04 02:13] VITALS: BP 91/74
[2023-05-04 02:23] LABS: BASOPHILS ABSOLUTE AUTO 0.09 K/mm3 (0.00-0.23); BASOPHILS PERCENT AUTO 1 % (0-2); EOSINOPHILS ABSOLUTE AUTO 0.36 K/mm3 (0.00-0.68); EOSINOPHILS PERCENT AUTO 3 % (0-6); Hematocrit 38.6 % (37.0-53.0); Hemoglobin 12.5 g/dL (13.5-17.5); Mean Corpuscular HGB 28.9 pg (26.0-34.0); Mean Corpuscular HGB Conc 32.4 g/dL (31.5-36.5); Mean Corpuscular Volume 89 fL (80-100); Mean Platelet Volume 10.2 fL (9.1-12.4); Platelet Count 208 K/mm3 (150-400); RDW Coefficient Variation 14.5 % (11.7-14.2); RDW Standard Deviation 47.7 fL (35.1-46.3); Red Blood Cell Count 4.32 M/mm3 (4.30-5.90); White Blood Cell Count 14.61 K/mm3 (4.00-11.30)
[2023-05-04 02:29] VITALS: BP 101/46
[2023-05-04 02:42] LABS: IMMATURE GRAN ABSOLUTE AUTO 0.05 K/mm3 (0.00-0.10); IMMATURE GRAN PERCENT AUTO 0 % (0-1); LYMPHOCYTES PERCENT AUTO 44 % (21-46); MONOCYTES ABSOLUTE AUTO 1.53 K/mm3 (0.16-1.47); MONOCYTES PERCENT AUTO 11 % (4-13); NEUTROPHILS ABSOLUTE AUTO 6.18 K/mm3 (1.96-9.15); NEUTROPHILS PERCENT AUTO 42 % (41-73)
[2023-05-04 02:46] LABS: Albumin, Blood 3.3 g/dL (3.4-5.0); Bilirubin, Total 0.5 mg/dL (0.1-1.0); Bun/Creatinine Ratio 19.8 (12.0-20.0); Calcium, Blood 8.6 mg/dL (8.5-10.1); Creatinine, Blood 1.21 mg/dL (0.60-1.20); Globulin, Blood 3.4 g/dL (2.2-4.0); Potassium, Blood 4.1 mmol/L (3.5-5.5); Total Protein, Blood 6.7 g/dL (6.4-8.2)
--- NOTE | 2023-05-04 05:16 | NUR ---
SHIFT SUMMARY/ADMISSION NOTE PATIENT ARRIVED TO UNIT FROM ED AT 22:55. ORIENTED PATIENT TO UNIT, ROOM AND CALL LIGHT FUNCTIONS. IS A/OX4, PLEASANT/COOPERATIVE. PRIMARILY KHMER SPEAKING BUT UNDERSTANDS AND SPEAKS SYRIAC WELL. DENIES PAIN, C/O FREQUENT LOOSE STOOLS WITH BLOOD PRESENT. AN HOUR AFTER BEING ADMITTED, PATIENT STARTED HAVING BLOODY LOOSE STOOL, BECAME DIAPHORETIC AND STATED HE FELT LIGHTHEADED. PROVIDER MILLING MACHINE SET UP OPERATOR NOTIFIED AND EMAR UPDATED WITH ORDERS. FOLLOWING BOLUS INFUSION OF NS, STATED HE WAS FEELING MUCH BETTER, BP IMPROVED. RESTING IN BED AT THIS TIME IN NO ACUTE DISTRESS. PENDING GI CONSULT. [id number] AT BEDSIDE TILL PATIENT FELL ASLEEP. PATIENT IS INDEPENDENT IN ROOM, STABLE GAIT. BED LOCKED IN LOWEST POSITION, CALL LIGHT WITHIN REACH.
[2023-05-04 07:30] VITALS: BP 101/48
--- NOTE | 2023-05-04 09:26 | NUR ---
PLAN FROM DR. GARRIDO SPOKE TO DR. GARRIDO ON THE PHONE ABOUT PT CONSULT FOR GI. PT TOOK PLAVIX YESTERDAY. PT TO REMAIN CLEAR LIQUID DIET AND RECHECK H&H AT [address] GARRIDO. PLAN FOR COLONOSCOPY. DAY & TIME UNDETERMINED.
[2023-05-04 11:55] VITALS: BP 124/43
[2023-05-04 15:24] VITALS: BP 122/65
[2023-05-04 17:02] LABS: Hematocrit 35.9 % (37.0-53.0); Hemoglobin 11.7 g/dL (13.5-17.5)
--- NOTE | 2023-05-04 18:02 | NUR ---
SHIFT SUMMARY NO BM THIS SHIFT. PT DENIES PAIN T/O SHIFT. GI CONSULT CALLED THIS AM. SEE EARILER NOTE ON PLAN FROM DR. GARRIDO. HBG OF 11.7 THIS AFTERNOON. BLOOD PRESSURES REMAIN STABLE. PT DENIES DIZZINESS OR LIGHTHEADEDNESS TODAY. IV FLUIDS INCREASED TO 125 ML/HR PER DR. JENNINGS. CLEAR LIQUID DIET TOLERATED AT THIS TIME DR. GARRIDO IN TO SEE THE PT AT 1800, PLAN FOR PROCEDURE 05/06/23 IN THE AFTERNOON. FULL LIQUID ORDER OBTAINED AT THIS TIME. . NO OTHER ACUTE CHANGES IN ASSESSMENT AT THIS TIME. VS REVIEWED. CALL LIGHT IN REACH. DENIES OTHER NEEDS AT THIS TIME.
[2023-05-04 19:59] VITALS: BP 113/47
[2023-05-05 03:36] VITALS: BP 113/45
--- NOTE | 2023-05-05 04:15 | NUR ---
SHIFT SUMMARY PATIENT ALERT, PLEASANT, NO COMPLAINTS STATED. NO LOOSE STOOL THIS SHIFT. VSS. NO ACUTE CHANGES NOTED OVERNIGHT. CALL LIGHT WITHIN REACH.
[2023-05-05 05:22] LABS: BASOPHILS ABSOLUTE AUTO 0.05 K/mm3 (0.00-0.23); BASOPHILS PERCENT AUTO 1 % (0-2); EOSINOPHILS ABSOLUTE AUTO 0.44 K/mm3 (0.00-0.68); EOSINOPHILS PERCENT AUTO 6 % (0-6); Hematocrit 30.3 % (37.0-53.0); Hemoglobin 9.8 g/dL (13.5-17.5); IMMATURE GRAN ABSOLUTE AUTO 0.02 K/mm3 (0.00-0.10); IMMATURE GRAN PERCENT AUTO 0 % (0-1); LYMPHOCYTES PERCENT AUTO 38 % (21-46); MONOCYTES ABSOLUTE AUTO 0.84 K/mm3 (0.16-1.47); MONOCYTES PERCENT AUTO 11 % (4-13); Mean Corpuscular HGB 28.6 pg (26.0-34.0); Mean Corpuscular HGB Conc 32.3 g/dL (31.5-36.5); Mean Corpuscular Volume 88 fL (80-100); Mean Platelet Volume 10.5 fL (9.1-12.4); NEUTROPHILS ABSOLUTE AUTO 3.44 K/mm3 (1.96-9.15); NEUTROPHILS PERCENT AUTO 45 % (41-73); Platelet Count 172 K/mm3 (150-400); RDW Coefficient Variation 14.6 % (11.7-14.2); RDW Standard Deviation 47.1 fL (35.1-46.3); Red Blood Cell Count 3.43 M/mm3 (4.30-5.90); White Blood Cell Count 7.69 K/mm3 (4.00-11.30)
[2023-05-05 05:46] LABS: Albumin, Blood 2.7 g/dL (3.4-5.0); Albumin/Globulin Ratio 0.9 (0.8-1.8); Bilirubin, Total 0.5 mg/dL (0.1-1.0); Bun/Creatinine Ratio 14.9 (12.0-20.0); Calcium, Blood 8.3 mg/dL (8.5-10.1); Creatinine, Blood 0.8 mg/dL (0.60-1.20); Globulin, Blood 3.1 g/dL (2.2-4.0); Potassium, Blood 4.2 mmol/L (3.5-5.5); Total Protein, Blood 5.8 g/dL (6.4-8.2)
[2023-05-05 07:36] VITALS: BP 122/46
[2023-05-05 15:57] VITALS: BP 136/53
--- NOTE | 2023-05-05 17:18 | NUR ---
SHIFT SUMMARY PT SHOWERED THIS SHIFT. NEW IV PLACED TO L AC. RUNNING NS AT 125 ML/HR. PT IND TO BSC. NO BM THIS SHIFT. PLAN TO BE NPO AFTER MIDNIGHT AND START BOWEL PREP TOMORROW MORNING. TENTATIVE COLONOSCOPY TOMORROW AFTERNOON/EVENING. FAMILY UP TO DATE ON CURRENT PLAN. NO OTHER ACUTE CHANGES IN ASSESSMENT AT THIS TIME. VS REVIEWED. CALL LIGHT IN REACH. DENIES OTHER NEEDS AT THIS TIME.
[2023-05-05 17:49] LABS: Hematocrit 32.8 % (37.0-53.0); Hemoglobin 10.6 g/dL (13.5-17.5)
[2023-05-05 20:04] VITALS: BP 149/53
--- NOTE | 2023-05-06 04:21 | NUR ---
SHIFT SUMMARY PATIENT NPO FOR PROCEDURE IN AFTERNOON-EVENING. AXOX 4 AND INDEPENDENT IN ROOM. PIV REMAINS INTACT. NS INFUSING @125 mL/HR. DENIES CHEST PAIN, SOB, AND N/V. VSS/AFEBRILE. SLEPT MOST OF THE SHIFT. COOPERATIVE WITH CARE. CALL LIGHT IN REACH. BED IN LOWEST POSITION. WILL CONTINUE TO MONITOR UNTIL DAY SHIFT NURSE ASSUMES CARE.
[2023-05-06 04:50] VITALS: BP 139/55
[2023-05-06 05:04] LABS: BASOPHILS ABSOLUTE AUTO 0.04 K/mm3 (0.00-0.23); BASOPHILS PERCENT AUTO 1 % (0-2); EOSINOPHILS ABSOLUTE AUTO 0.33 K/mm3 (0.00-0.68); EOSINOPHILS PERCENT AUTO 5 % (0-6); Hematocrit 29.8 % (37.0-53.0); Hemoglobin 9.8 g/dL (13.5-17.5); IMMATURE GRAN ABSOLUTE AUTO 0.02 K/mm3 (0.00-0.10); IMMATURE GRAN PERCENT AUTO 0 % (0-1); LYMPHOCYTES ABSOLUTE AUTO 2.32 K/mm3 (0.84-5.20); LYMPHOCYTES PERCENT AUTO 33 % (21-46); MONOCYTES ABSOLUTE AUTO 0.81 K/mm3 (0.16-1.47); MONOCYTES PERCENT AUTO 11 % (4-13); Mean Corpuscular HGB 29.3 pg (26.0-34.0); Mean Corpuscular HGB Conc 32.9 g/dL (31.5-36.5); Mean Corpuscular Volume 89 fL (80-100); Mean Platelet Volume 10.4 fL (9.1-12.4); NEUTROPHILS ABSOLUTE AUTO 3.57 K/mm3 (1.96-9.15); NEUTROPHILS PERCENT AUTO 50 % (41-73); Platelet Count 155 K/mm3 (150-400); RDW Coefficient Variation 14.4 % (11.7-14.2); RDW Standard Deviation 46.4 fL (35.1-46.3); Red Blood Cell Count 3.35 M/mm3 (4.30-5.90); White Blood Cell Count 7.09 K/mm3 (4.00-11.30)
[2023-05-06 05:33] LABS: Bun/Creatinine Ratio 7.8 (12.0-20.0); Calcium, Blood 8.2 mg/dL (8.5-10.1); Creatinine, Blood 0.9 mg/dL (0.60-1.20); Potassium, Blood 3.9 mmol/L (3.5-5.5)
[2023-05-06 07:48] VITALS: BP 138/49
[2023-05-06 15:11] VITALS: BP 136/53
--- NOTE | 2023-05-06 16:30 | NUR ---
COMPLETED COLONOSCOPY PREP AND HAD CLEAR YELLOW DISCHARGE. DAY SURGERY AWARE AND IS COMING BY TO PICK PT UP. DAUGHTER IN LAW AT BEDSIDE. NO BLEEDING NOTED FROM RECTUM.
[2023-05-06 16:49] VITALS: BP 166/63
--- NOTE | 2023-05-06 18:21 | NUR ---
05/06/23 182 Aubrie Benz INTO ENDO 1 @ 1802.History, Chart, Medications and Allergies reviewed before start of procedure.MONITOR INTACT WITH CONTINUOUS PULSE OXIMETRY, CONTINUOUS END TITAL CO2, AND INTERMITTENT BLOOD PRESSURE. 3-LEAD EKG REVIEWED WITH PHYSICIAN PRIOR TO START OF PROCEDURE.O2 VIA N/C INTACT THROUGHOUT SEDATION/PROCEDURE.DR. PEARSON PROVIDING ANESTHESIA.
[2023-05-06 19:20] VITALS: BP 144/90
--- NOTE | 2023-05-07 04:33 | NUR ---
SHIFT SUMMARY: PT BACK FROM COLONOSCOPY DURING SHIFT CHANGE. PT IS ALERT AND ORIENTED, INDEPENDENT TO STANDBY ASSIST. PT DENIES PAIN, NAUSEA, VOMITING AND SOB. PT SLEPT MUCH OF THE NIGHT. NO ACUE CHANGES OR COMPLICATIONS. POSSIBLE DC TODAY. WILL CONTINUE TO MONITOR AND REPORT TO DAY NURSE.
[2023-05-07 05:19] LABS: BASOPHILS ABSOLUTE AUTO 0.06 K/mm3 (0.00-0.23); BASOPHILS PERCENT AUTO 1 % (0-2); EOSINOPHILS ABSOLUTE AUTO 0.32 K/mm3 (0.00-0.68); EOSINOPHILS PERCENT AUTO 4 % (0-6); Hematocrit 30.2 % (37.0-53.0); Hemoglobin 9.9 g/dL (13.5-17.5); IMMATURE GRAN ABSOLUTE AUTO 0.02 K/mm3 (0.00-0.10); IMMATURE GRAN PERCENT AUTO 0 % (0-1); LYMPHOCYTES ABSOLUTE AUTO 2.23 K/mm3 (0.84-5.20); LYMPHOCYTES PERCENT AUTO 28 % (21-46); MONOCYTES PERCENT AUTO 11 % (4-13); Mean Corpuscular HGB Conc 32.8 g/dL (31.5-36.5); Mean Corpuscular Volume 89 fL (80-100); Mean Platelet Volume 10.7 fL (9.1-12.4); NEUTROPHILS ABSOLUTE AUTO 4.47 K/mm3 (1.96-9.15); NEUTROPHILS PERCENT AUTO 56 % (41-73); Platelet Count 174 K/mm3 (150-400); RDW Coefficient Variation 14.5 % (11.7-14.2); RDW Standard Deviation 46.5 fL (35.1-46.3); Red Blood Cell Count 3.41 M/mm3 (4.30-5.90)
[2023-05-07 05:32] VITALS: BP 153/64
[2023-05-07 06:29] LABS: Bun/Creatinine Ratio 9.3 (12.0-20.0); Calcium, Blood 8.3 mg/dL (8.5-10.1); Creatinine, Blood 0.86 mg/dL (0.60-1.20); Potassium, Blood 3.7 mmol/L (3.5-5.5)
[2023-05-07 07:36] VITALS: BP 135/59
--- NOTE | 2023-05-07 12:30 | NUR ---
DISCHARGE INSTRUCTIONS COMPLETED AND DISCUSSED WITH PT EXPRESSING UNDERSTANDING. NO NEW SCRIPTS. DENIES ANY FURTHER RECTAL BLEEDING. TO CURB VIA W/C WITH DAUGHTER IN LAW.
== END 2023-05-07 12:20 | disposition home or self-care (01) | DRG 393 ==
LOC: ER 19:34 → MEDS 19:35 → ENPENDDIS 05-07 11:49 → MEDS 05-07 12:20
PROVIDERS: Family Medicine; Internal Medicine; Internal Medicine Gastroenterology; Physician Assistant; ADMIT Hospitalist
PROC: 0DBL8ZZ Excision of Transverse Colon, Via Natural or Artificial Opening Endoscopic (ICD-10-PCS; principal; 2023-05-06 13:30)
DX: K64.4 Residual hemorrhoidal skin tags (principal); K57.31 Diverticulosis of large intestine without perforation or abscess with bleeding; D62 Acute posthemorrhagic anemia; I13.0 Hypertensive heart and chronic kidney disease with heart failure and stage 1 through stage 4 chronic kidney disease, or unspecified chronic kidney disease; N17.9 Acute kidney failure, unspecified; N18.30 Chronic kidney disease, stage 3 unspecified; K63.5 Polyp of colon; J44.9 Chronic obstructive pulmonary disease, unspecified; I25.10 Atherosclerotic heart disease of native coronary artery without angina pectoris; I50.9 Heart failure, unspecified; E11.22 Type 2 diabetes mellitus with diabetic chronic kidney disease; E78.5 Hyperlipidemia, unspecified; N40.0 Benign prostatic hyperplasia without lower urinary tract symptoms; E11.51 Type 2 diabetes mellitus with diabetic peripheral angiopathy without gangrene; K21.9 Gastro-esophageal reflux disease without esophagitis; E11.42 Type 2 diabetes mellitus with diabetic polyneuropathy; G47.33 Obstructive sleep apnea (adult) (pediatric); I70.0 Atherosclerosis of aorta; I25.2 Old myocardial infarction; Z95.2 Presence of prosthetic heart valve; Z79.82 Long term (current) use of aspirin; Z79.899 Other long term (current) drug therapy; Z79.51 Long term (current) use of inhaled steroids; Z79.84 Long term (current) use of oral hypoglycemic drugs; Z79.02 Long term (current) use of antithrombotics/antiplatelets
CPT/HCPCS: 36415; 74177; 80048; 80053; 82947; 85014; 85018; 85025; 86850; 86900; 86901; 94640; 94664; 94760; 99285-25; A9270; C9113; J2704; J7030; J7050; J7120; Q9967

== ENCOUNTER 2023-12-05 23:42 | Inpatient (IN) | payer MEDICARE, OTHER ==
[~2023-12-05] VITALS: Ht 165.1 cm; Wt 87.5 kg
[2023-12-05] MEDS ORDERED: Ipratropium Bromide INH 0.02% 0.5 mg/2.5ML Vial INH SCH (23:50)
[2023-12-05] MEDS ORDERED: Albuterol 2.5 MG/3 ML VIAL INH ONE (23:50)
[2023-12-06] MEDS ORDERED: ROSUVASTATIN CAL5 MG PO (00:05)
[2023-12-06] MEDS ORDERED: MethylPREDNISolone Sod Succ 125 MG Vial IV ONE (00:10)
[2023-12-06 00:14] LABS: BASOPHILS ABSOLUTE AUTO 0.07 K/mm3 (0.00-0.23); BASOPHILS PERCENT AUTO 1 % (0-2); EOSINOPHILS ABSOLUTE AUTO 0.24 K/mm3 (0.00-0.68); EOSINOPHILS PERCENT AUTO 3 % (0-6); Hematocrit 46.8 % (37.0-53.0); Hemoglobin 14.9 g/dL (13.5-17.5); IMMATURE GRAN ABSOLUTE AUTO 0.03 K/mm3 (0.00-0.10); IMMATURE GRAN PERCENT AUTO 0 % (0-1); LYMPHOCYTES ABSOLUTE AUTO 3.21 K/mm3 (0.84-5.20); LYMPHOCYTES PERCENT AUTO 35 % (21-46); MONOCYTES ABSOLUTE AUTO 0.89 K/mm3 (0.16-1.47); MONOCYTES PERCENT AUTO 10 % (4-13); Mean Corpuscular HGB 25.9 pg (26.0-34.0); Mean Corpuscular HGB Conc 31.8 g/dL (31.5-36.5); Mean Corpuscular Volume 81 fL (80-100); Mean Platelet Volume 9.7 fL (9.1-12.4); NEUTROPHILS ABSOLUTE AUTO 4.64 K/mm3 (1.96-9.15); NEUTROPHILS PERCENT AUTO 51 % (41-73); Platelet Count 244 K/mm3 (150-400); RDW Coefficient Variation 18.7 % (11.7-14.2); RDW Standard Deviation 53.8 fL (35.1-46.3); Red Blood Cell Count 5.76 M/mm3 (4.30-5.90); White Blood Cell Count 9.08 K/mm3 (4.00-11.30)
[2023-12-06 00:32] LABS: Albumin, Blood 3.6 g/dL (3.4-5.0); Albumin/Globulin Ratio 0.9 (0.8-1.8); Bilirubin, Total 0.3 mg/dL (0.1-1.0); Calcium, Blood 9.4 mg/dL (8.5-10.1); Creatinine, Blood 1.05 mg/dL (0.60-1.20); Globulin, Blood 4.1 g/dL (2.2-4.0); Potassium, Blood 4.5 mmol/L (3.5-5.5); Total Protein, Blood 7.7 g/dL (6.4-8.2)
[2023-12-06 00:45] LABS: Base Excess Venous 2.1 mmol/L; Bicarbonate Venous 24.9 mmol/L (24.0-30.0); PCO2 Venous 53.4 mmHg (38-42); pH Blood Venous 7.33 (7.34-7.37)
[2023-12-06 01:13] LABS: Influenza A, PCR NEGATIVE (NEGATIVE); Influenza B, PCR NEGATIVE (NEGATIVE); Resp Syncytial Virus, PCR NEGATIVE (NEGATIVE); SARS-Cov-2 (COVID-19) PCR, MMC NEGATIVE (NEGATIVE)
[2023-12-06] MEDS ORDERED: Aspirin 325 MG Tab PO ONE (01:25)
[2023-12-06] MEDS ORDERED: Acetaminophen 325 MG TABLET PO PRN (01:50)
[2023-12-06] MEDS ORDERED: Ondansetron HCl 2 MG / ML 2ML Vial IV PRN (01:50)
[2023-12-06] MEDS ORDERED: Ipratropium/Albuterol SulF 2.5-0.5MG/3 ML Amp INH PRN (01:55)
[2023-12-06] MEDS ORDERED: Azithromycin 500 MG in NS 250 ML IV SCH (02:03)
[2023-12-06] MEDS ORDERED: TIOTROPIUM BROMIDE INH SCH (06:35)
[2023-12-06] MEDS ORDERED: Albuterol HFA200 ACT/6.7 GM INH INH PRN (06:45)
[2023-12-06] MEDS ORDERED: Furosemide 10 MG/ML 4ML Vial IV SCH (07:00)
[2023-12-06] MEDS ORDERED: Insulin Human Lispro 100 Units/ML 3ML Syringe SC SCH (07:30)
[2023-12-06] MEDS ORDERED: MethylPREDNISolone Sod Succ 125 MG Vial IV SCH ×2 (08:00→09:00)
[2023-12-06] MEDS ORDERED: Metoprolol Tartrate 50 MG Tab PO SCH (08:00)
[2023-12-06 08:15] LABS: Source, Urine Clean Catch
[2023-12-06 08:22] LABS: Appearance, Urine Clear (Clear); Bilirubin, Urine Neg (Neg); Blood, Urine Neg (Neg); Glucose Qualitative, Urine Neg (Neg); Ketones, Urine Neg (Neg); Leukocyte Esterase, Urine Neg (Neg); Nitrite, Urine Neg (Neg); Protein, Urine Neg (Neg); Urobilinogen, Urine NORM (Normal)
[2023-12-06 08:27] LABS: Color, Urine Pale Yellow (P-Yellow)
[2023-12-06] MEDS ORDERED: Clopidogrel Bisulfate 75 MG Tab PO SCH (09:00)
[2023-12-06] MEDS ORDERED: Aspirin 81 MG TabEC PO SCH (09:00)
[2023-12-06] MEDS ORDERED: Potassium Chloride 10 Meq Tablet SA PO SCH (09:00)
[2023-12-06] MEDS ORDERED: Tamsulosin HCl 0.4 MG Cap PO SCH (09:00)
[2023-12-06] MEDS ORDERED: Enoxaparin 40 MG/0.4 ML SYR SC SCH (09:00)
[2023-12-06] MEDS ORDERED: Mometasone/Formoterol MDI 100/5 mcg 13 GM INH SCH (12:10)
[2023-12-06] MEDS ORDERED: Ipratropium Bromide INH 0.02% 0.5 mg/2.5ML Vial INH SCH (12:15)
[2023-12-06 12:41] LABS: Albumin, Blood 3.9 g/dL (3.4-5.0); Albumin/Globulin Ratio 0.8 (0.8-1.8); Bilirubin, Total 0.4 mg/dL (0.1-1.0); Calcium, Blood 9.6 mg/dL (8.5-10.1); Creatinine, Blood 0.95 mg/dL (0.60-1.20); Globulin, Blood 4.7 g/dL (2.2-4.0); Potassium, Blood 4.5 mmol/L (3.5-5.5); Total Protein, Blood 8.6 g/dL (6.4-8.2)
[2023-12-06 14:18] VITALS: BP 155/87
[2023-12-06 15:24] LABS: BASOPHILS ABSOLUTE AUTO 0.02 K/mm3 (0.00-0.23); BASOPHILS PERCENT AUTO 0 % (0-2); EOSINOPHILS PERCENT AUTO 0 % (0-6); Hematocrit 47.9 % (37.0-53.0); Hemoglobin 15.4 g/dL (13.5-17.5); IMMATURE GRAN ABSOLUTE AUTO 0.05 K/mm3 (0.00-0.10); IMMATURE GRAN PERCENT AUTO 1 % (0-1); LYMPHOCYTES ABSOLUTE AUTO 0.99 K/mm3 (0.84-5.20); LYMPHOCYTES PERCENT AUTO 10 % (21-46); MONOCYTES PERCENT AUTO 1 % (4-13); Mean Corpuscular HGB 25.8 pg (26.0-34.0); Mean Corpuscular HGB Conc 32.2 g/dL (31.5-36.5); Mean Corpuscular Volume 80 fL (80-100); Mean Platelet Volume 9.3 fL (9.1-12.4); NEUTROPHILS ABSOLUTE AUTO 8.69 K/mm3 (1.96-9.15); NEUTROPHILS PERCENT AUTO 88 % (41-73); Platelet Count 242 K/mm3 (150-400); RDW Coefficient Variation 18.6 % (11.7-14.2); RDW Standard Deviation 52.3 fL (35.1-46.3); Red Blood Cell Count 5.98 M/mm3 (4.30-5.90); White Blood Cell Count 9.85 K/mm3 (4.00-11.30)
[2023-12-06] MEDS ORDERED: Albuterol 2.5 MG/3 ML VIAL INH PRN (16:25)
[2023-12-06] MEDS ORDERED: Tiotropium Bromide 2.5 MCG/ACT MIST INHAL (10 ACT/4 GM) INH SCH (16:25)
--- NOTE | 2023-12-06 19:05 | NUR ---
REPORT REVEIVED PT ARRIVED A/O VERY PLEASENT AND COOPERATIVE. NO DIFFICULTY BREATHING LUNGS CLR AND DIMINISHED, ADMISSION DATA BASE DONE, PT ABLE TO MAKE NEEDS KNOWN. THOUGH IS A [place] SPEAKER, PT SPEAKS DANISH VERY WELL AND HAS BEEN IN THE AREA OVER 45 YEARS. MAKES NEEDS KNOWN.
[2023-12-06 19:57] VITALS: BP 118/53
[2023-12-06] MEDS ORDERED: Gabapentin 300 MG Cap PO SCH (21:00)
[2023-12-07 05:06] VITALS: BP 123/60
--- NOTE | 2023-12-07 05:40 | NUR ---
OFFICE ASSISTANT PATIENT IS A&OX4, VITALS ARE STABLE, ON 2L NC (2L NC BASELINE AT HOME) SHALLOW BREATHING OBSERVED BUT PATIENT DENIED ANY DIFFICULT BREATHING. PATIENT DENIED ANY PAIN. PATIENT GETS UP WITH STAND BY ASSIST, USES URINAL AT BEDSIDE AND CALLS APPROPRIATELY. PATIENT HAD A CRITICAL TROPONIN LEVEL OF 397, MD WAS NOT NOTIFIED BECAUSE RESULT IS TRENDING DOWN. PATIENT HAS BILATERAL EDEMA TO HIS LOWER EXTREMITIES. CPTIENT COMPLAIN OF CONSTIPATION SO MAY NEED A STOOL SOFTENER.
[2023-12-07] MEDS ORDERED: Omeprazole 20 MG CapCR PO SCH (06:00)
[2023-12-07 07:45] VITALS: BP 132/55
[2023-12-07 09:22] LABS: BASOPHILS ABSOLUTE AUTO 0.03 K/mm3 (0.00-0.23); BASOPHILS PERCENT AUTO 0 % (0-2); EOSINOPHILS PERCENT AUTO 0 % (0-6); Hematocrit 49.7 % (37.0-53.0); Hemoglobin 16.1 g/dL (13.5-17.5); IMMATURE GRAN ABSOLUTE AUTO 0.18 K/mm3 (0.00-0.10); IMMATURE GRAN PERCENT AUTO 1 % (0-1); LYMPHOCYTES ABSOLUTE AUTO 1.61 K/mm3 (0.84-5.20); LYMPHOCYTES PERCENT AUTO 8 % (21-46); MONOCYTES ABSOLUTE AUTO 1.02 K/mm3 (0.16-1.47); MONOCYTES PERCENT AUTO 5 % (4-13); Mean Corpuscular HGB Conc 32.4 g/dL (31.5-36.5); Mean Corpuscular Volume 80 fL (80-100); Mean Platelet Volume 9.6 fL (9.1-12.4); NEUTROPHILS ABSOLUTE AUTO 16.58 K/mm3 (1.96-9.15); NEUTROPHILS PERCENT AUTO 85 % (41-73); Platelet Count 252 K/mm3 (150-400); RDW Coefficient Variation 19.3 % (11.7-14.2); RDW Standard Deviation 52.6 fL (35.1-46.3); White Blood Cell Count 19.42 K/mm3 (4.00-11.30)
[2023-12-07 09:43] LABS: Albumin, Blood 3.5 g/dL (3.4-5.0); Albumin/Globulin Ratio 0.8 (0.8-1.8); Bilirubin, Total 0.5 mg/dL (0.1-1.0); Bun/Creatinine Ratio 29.8 (12.0-20.0); Calcium, Blood 9.1 mg/dL (8.5-10.1); Creatinine, Blood 0.87 mg/dL (0.60-1.20); Globulin, Blood 4.3 g/dL (2.2-4.0); Potassium, Blood 4.3 mmol/L (3.5-5.5); Total Protein, Blood 7.8 g/dL (6.4-8.2)
[2023-12-07] MEDS ORDERED: Docusate Sodium/Senna 1 Tab PO ONE (17:00)
[2023-12-07] MEDS ORDERED: Docusate Sodium/Senna 1 Tab PO PRN (17:00)
--- NOTE | 2023-12-07 20:00 | NUR ---
pt much better today but still out of breath, pt will not be discharged. pt independant in room, calls appropriate and makes needs known
[2023-12-07 20:02] VITALS: BP 138/66
--- NOTE | 2023-12-08 01:52 | NUR ---
12/07/23 2200 PT LYING IN BED, DENIES ANY DISCOMFORT AT THIS TIME. TELE NSR W/BBB AT 77. BS WAS 181. IV APPEARS INFILTRATED. WILL DC AND START A NEW IV DORIS. NO OTHER APPARENT SIGNS OF DISTRESS. CALL LIGHT IS IN REACH.
--- NOTE | 2023-12-08 01:54 | NUR ---
12/07/23 2312 DC'D IV AND STARTED A NEW IV. PT TOLERATED PROCEDURE WELL. NO APPARENT SIGNS OF DISTRESS. CALL LIGHT IS IN REACH.
[2023-12-08] MEDS ORDERED: Magnesium Hydroxide Conc 10 ML UDC PO PRN (02:25)
[2023-12-08] MEDS ORDERED: Bisacodyl 10 MG Supp PR PRN (02:25)
[2023-12-08 04:30] VITALS: BP 115/62
--- NOTE | 2023-12-08 04:34 | NUR ---
0200 PT LYING IN BED, EYES CLOSED, APPEARS TO BE RESTING. BREATHING IS EVEN, UNLABORED. NO APPARENT SIGNS OF DISTRESS. CALL LIGHT IS IN REACH.
--- NOTE | 2023-12-08 04:35 | NUR ---
PT IS AAO X 4, ON RA, OCC USES 2L NC. DENIES SOB. IS AT 98% ON RA. BS WAS 181, TELE NSR, BBB, 70'S.
--- NOTE | 2023-12-08 04:35 | NUR ---
0400 PT LYING IN BED, EYES CLOSED, APPEARS TO BE RESTING. WAKES EASILY TO VERBAL STIMULI. NO APPARENT SIGNS OF DISTRESS. CALL LIGHT IS IN REACH.
--- NOTE | 2023-12-08 05:39 | NUR ---
PT LYING IN BED, EYES CLOSED, APPEARS TO BE RESTING. BREATHING IS EVEN, UNLABORED. NO APPARENT SIGNS OF DISTRESS. CALL LIGHT IS IN REACH. NO OTHER CHANGES THIS SHIFT.
[2023-12-08 06:13] LABS: BASOPHILS ABSOLUTE AUTO 0.02 K/mm3 (0.00-0.23); BASOPHILS PERCENT AUTO 0 % (0-2); EOSINOPHILS PERCENT AUTO 0 % (0-6); Hematocrit 46.7 % (37.0-53.0); Hemoglobin 15.2 g/dL (13.5-17.5); IMMATURE GRAN ABSOLUTE AUTO 0.22 K/mm3 (0.00-0.10); IMMATURE GRAN PERCENT AUTO 1 % (0-1); LYMPHOCYTES ABSOLUTE AUTO 1.18 K/mm3 (0.84-5.20); LYMPHOCYTES PERCENT AUTO 6 % (21-46); MONOCYTES ABSOLUTE AUTO 0.76 K/mm3 (0.16-1.47); MONOCYTES PERCENT AUTO 4 % (4-13); Mean Corpuscular HGB 26.4 pg (26.0-34.0); Mean Corpuscular HGB Conc 32.5 g/dL (31.5-36.5); Mean Corpuscular Volume 81 fL (80-100); Mean Platelet Volume 9.9 fL (9.1-12.4); NEUTROPHILS ABSOLUTE AUTO 16.15 K/mm3 (1.96-9.15); NEUTROPHILS PERCENT AUTO 88 % (41-73); Platelet Count 258 K/mm3 (150-400); RDW Coefficient Variation 19.7 % (11.7-14.2); RDW Standard Deviation 52.7 fL (35.1-46.3); Red Blood Cell Count 5.75 M/mm3 (4.30-5.90); White Blood Cell Count 18.33 K/mm3 (4.00-11.30)
[2023-12-08 06:30] LABS: Bun/Creatinine Ratio 28.2 (12.0-20.0); Calcium, Blood 8.7 mg/dL (8.5-10.1); Creatinine, Blood 1.1 mg/dL (0.60-1.20); Potassium, Blood 4.6 mmol/L (3.5-5.5)
[2023-12-08 07:48] VITALS: BP 138/62
[2023-12-08] MEDS ORDERED: Docusate Sodium/Senna 1 Tab PO SCH (09:00)
[2023-12-08] MEDS ORDERED: PredniSONE 20 MG Tab PO SCH (09:00)
[2023-12-08] MEDS ORDERED: Polyethylene Glycol 3350 17 gm PO SCH (09:00)
[2023-12-08] MEDS ORDERED: Docusate Sodium 100 MG Cap PO SCH (09:00)
[2023-12-08] MEDS ORDERED: Lisinopril 5 MG Tab PO SCH (09:00)
--- NOTE | 2023-12-08 12:05 | NUR ---
LUNCH TIME CBG 233
[2023-12-08] MEDS ORDERED: PRED20 PO (13:14)
--- NOTE | 2023-12-08 14:43 | NUR ---
DISCHARGE NOTE PT DISCHARGED TO HOME, PICKED UP BY HIS FRIEND. IV REMOVED. TELE RETURNED. DISCHARGE EDUCATION AND INFORMATION PROVIDED. MEDICATIONS FAXED TO THE PHARMACY OF HIS CHOICE.
== END 2023-12-08 14:37 | disposition home or self-care (01) | DRG 291 ==
LOC: ER 23:42 → MEDS 12-06 01:48 → ERHOLD 12-06 01:48 → MEDS 12-06 14:12 → ENPENDDIS 12-08 13:36 → MEDS 12-08 14:37
PROVIDERS: Internal Medicine; Student in an Organized Health Care Education/Training Program; ADMIT Internal Medicine
DX: I13.0 Hypertensive heart and chronic kidney disease with heart failure and stage 1 through stage 4 chronic kidney disease, or unspecified chronic kidney disease (principal); I50.33 Acute on chronic diastolic (congestive) heart failure; J96.01 Acute respiratory failure with hypoxia; J44.1 Chronic obstructive pulmonary disease with (acute) exacerbation; J44.0 Chronic obstructive pulmonary disease with (acute) lower respiratory infection; E87.29 Other acidosis; N40.0 Benign prostatic hyperplasia without lower urinary tract symptoms; N18.30 Chronic kidney disease, stage 3 unspecified; I25.10 Atherosclerotic heart disease of native coronary artery without angina pectoris; K21.9 Gastro-esophageal reflux disease without esophagitis; E78.5 Hyperlipidemia, unspecified; E11.22 Type 2 diabetes mellitus with diabetic chronic kidney disease; E11.42 Type 2 diabetes mellitus with diabetic polyneuropathy; Z86.73 Personal history of transient ischemic attack (TIA), and cerebral infarction without residual deficits; Z79.84 Long term (current) use of oral hypoglycemic drugs; Z79.82 Long term (current) use of aspirin; Z79.899 Other long term (current) drug therapy; Z79.02 Long term (current) use of antithrombotics/antiplatelets; Z87.891 Personal history of nicotine dependence; Z90.49 Acquired absence of other specified parts of digestive tract; M19.90 Unspecified osteoarthritis, unspecified site; Z79.01 Long term (current) use of anticoagulants; Z95.2 Presence of prosthetic heart valve; G47.33 Obstructive sleep apnea (adult) (pediatric); Z98.890 Other specified postprocedural states
CPT/HCPCS: 0241U; 36415; 71046; 80048; 80053; 81003; 82803; 82947; 83880; 84484; 85025; 93005; 93010; 94640; 94644; 94664; 94760; 96374; 99285-25; A9270; J0456; J1650; J1940; J2919; J7050; J7512

== ENCOUNTER 2024-07-05 05:09 | Emergency (ER) | payer MEDICARE, OTHER ==
[~2024-07-05] VITALS: Ht 165.1 cm; Wt 88.9 kg
[~2024-07-05 05:09] MED LIST changes: +ROSUVASTATIN CAL5 MG PO
[2024-07-05] MEDS ORDERED: Albuterol 2.5 MG/3 ML VIAL INH SCH ×2 (05:20→07:05)
[2024-07-05 05:39] LABS: BASOPHILS ABSOLUTE AUTO 0.09 K/mm3 (0.00-0.23); BASOPHILS PERCENT AUTO 1 % (0-2); EOSINOPHILS ABSOLUTE AUTO 0.81 K/mm3 (0.00-0.68); EOSINOPHILS PERCENT AUTO 9 % (0-6); Hematocrit 49.3 % (37.0-53.0); IMMATURE GRAN ABSOLUTE AUTO 0.03 K/mm3 (0.00-0.10); IMMATURE GRAN PERCENT AUTO 0 % (0-1); LYMPHOCYTES ABSOLUTE AUTO 3.18 K/mm3 (0.84-5.20); LYMPHOCYTES PERCENT AUTO 36 % (21-46); MONOCYTES ABSOLUTE AUTO 0.94 K/mm3 (0.16-1.47); MONOCYTES PERCENT AUTO 11 % (4-13); Mean Corpuscular HGB 28.2 pg (26.0-34.0); Mean Corpuscular HGB Conc 32.5 g/dL (31.5-36.5); Mean Corpuscular Volume 87 fL (80-100); Mean Platelet Volume 9.5 fL (9.1-12.4); NEUTROPHILS ABSOLUTE AUTO 3.91 K/mm3 (1.96-9.15); NEUTROPHILS PERCENT AUTO 44 % (41-73); Platelet Count 203 K/mm3 (150-400); RDW Coefficient Variation 16.1 % (11.7-14.2); RDW Standard Deviation 51.3 fL (35.1-46.3); Red Blood Cell Count 5.68 M/mm3 (4.30-5.90); White Blood Cell Count 8.96 K/mm3 (4.00-11.30)
[2024-07-05 06:04] LABS: CORONAVIRUS COVID-19 AG Negative (NEGATIVE); INFLUENZA A AG Negative (NEGATIVE); INFLUENZA B AG Negative (NEGATIVE)
[2024-07-05 06:05] LABS: Albumin, Blood 3.5 g/dL (3.4-5.0); Albumin/Globulin Ratio 0.9 (0.8-1.8); Bilirubin, Total 0.4 mg/dL (0.1-1.0); Bun/Creatinine Ratio 11.9 (12.0-20.0); Calcium, Blood 9.3 mg/dL (8.5-10.1); Creatinine, Blood 1.01 mg/dL (0.60-1.20); Globulin, Blood 3.8 g/dL (2.2-4.0); Magnesium, Blood 2.1 mg/dL (1.6-2.4); Potassium, Blood 4.3 mmol/L (3.5-5.5); Total Protein, Blood 7.3 g/dL (6.4-8.2)
[2024-07-05] MEDS ORDERED: MethylPREDNISolone Sod Succ 125 MG Vial IV ONE (06:25)
[2024-07-05] MEDS ORDERED: Azithromycin 250 MG Tab PO ONE (06:25)
[2024-07-05] MEDS ORDERED: ALBU90OI INH (09:21)
[2024-07-05] MEDS ORDERED: AZIT250 PO (09:21)
[2024-07-05] MEDS ORDERED: PRED20 PO (09:21)
[2024-07-05 09:28] VITALS: BP 145/62
== END 2024-07-05 09:28 | disposition home or self-care (01) ==
LOC: ER 05:09
PROVIDERS: Student in an Organized Health Care Education/Training Program
DX: J44.0 Chronic obstructive pulmonary disease with (acute) lower respiratory infection (principal); J18.9 Pneumonia, unspecified organism; J44.1 Chronic obstructive pulmonary disease with (acute) exacerbation; I10 Essential (primary) hypertension; E11.40 Type 2 diabetes mellitus with diabetic neuropathy, unspecified; E78.5 Hyperlipidemia, unspecified; K21.9 Gastro-esophageal reflux disease without esophagitis; Z79.84 Long term (current) use of oral hypoglycemic drugs; Z79.82 Long term (current) use of aspirin; Z79.899 Other long term (current) drug therapy; Z87.891 Personal history of nicotine dependence
CPT/HCPCS: 71045; 80053; 83735; 83880; 84484; 85025; 87428-QW; 93005; 93010; 94644; 94645; 94664; 96374; 99285-25; A9270; J2919

== ENCOUNTER 2024-08-29 09:32 | Emergency (ER) | payer OTHER ==
[~2024-08-29] VITALS: Ht 162.6 cm; Wt 87.5 kg
[2024-08-29] MEDS ORDERED: Ipratropium/Albuterol SulF 2.5-0.5MG/3 ML Amp INH ONE (09:45)
[2024-08-29 10:20] LABS: BASOPHILS ABSOLUTE AUTO 0.05 K/mm3 (0.00-0.23); BASOPHILS PERCENT AUTO 1 % (0-2); EOSINOPHILS ABSOLUTE AUTO 0.08 K/mm3 (0.00-0.68); EOSINOPHILS PERCENT AUTO 1 % (0-6); Hematocrit 52.2 % (37.0-53.0); Hemoglobin 17.1 g/dL (13.5-17.5); IMMATURE GRAN ABSOLUTE AUTO 0.03 K/mm3 (0.00-0.10); IMMATURE GRAN PERCENT AUTO 0 % (0-1); LYMPHOCYTES ABSOLUTE AUTO 1.54 K/mm3 (0.84-5.20); LYMPHOCYTES PERCENT AUTO 21 % (21-46); MONOCYTES ABSOLUTE AUTO 0.98 K/mm3 (0.16-1.47); MONOCYTES PERCENT AUTO 13 % (4-13); Mean Corpuscular HGB 28.4 pg (26.0-34.0); Mean Corpuscular HGB Conc 32.8 g/dL (31.5-36.5); Mean Corpuscular Volume 87 fL (80-100); Mean Platelet Volume 9.6 fL (9.1-12.4); NEUTROPHILS ABSOLUTE AUTO 4.69 K/mm3 (1.96-9.15); NEUTROPHILS PERCENT AUTO 64 % (41-73); Platelet Count 204 K/mm3 (150-400); RDW Coefficient Variation 15.8 % (11.7-14.2); RDW Standard Deviation 50.3 fL (35.1-46.3); Red Blood Cell Count 6.02 M/mm3 (4.30-5.90); White Blood Cell Count 7.37 K/mm3 (4.00-11.30)
[2024-08-29 10:32] LABS: Base Excess Venous 0.5 mmol/L; PCO2 Venous 43.9 mmHg (38-42); pH Blood Venous 7.38 (7.34-7.37)
[2024-08-29 10:37] LABS: Albumin, Blood 3.6 g/dL (3.4-5.0); Bilirubin, Total 0.6 mg/dL (0.1-1.0); Bun/Creatinine Ratio 13.5 (12.0-20.0); Calcium, Blood 8.9 mg/dL (8.5-10.1); Creatinine, Blood 0.89 mg/dL (0.60-1.20); Globulin, Blood 3.7 g/dL (2.2-4.0); Potassium, Blood 4.4 mmol/L (3.5-5.5); Total Protein, Blood 7.3 g/dL (6.4-8.2)
[2024-08-29 10:52] LABS: CORONAVIRUS COVID-19 AG Negative (NEGATIVE); INFLUENZA A AG Negative (NEGATIVE); INFLUENZA B AG Negative (NEGATIVE)
[2024-08-29] MEDS ORDERED: PredniSONE 20 MG Tab PO ONE (12:05)
[2024-08-29] MEDS ORDERED: Amoxicillin/Clavulanate K 875 MG Tab PO ONE (12:05)
[2024-08-29] MEDS ORDERED: Prednisone20 MG PO (13:21)
[2024-08-29] MEDS ORDERED: AMOCLA875 PO (13:23)
[2024-08-29] MEDS ORDERED: Oxymetazoline 0.05% Nasal Relief Spray 15mL BTL ONE (14:15)
[2024-08-29 14:30] VITALS: BP 123/77
== END 2024-08-29 14:40 | disposition home or self-care (01) ==
LOC: ER 09:32
PROVIDERS: Emergency Medicine
DX: J44.1 Chronic obstructive pulmonary disease with (acute) exacerbation (principal); E78.5 Hyperlipidemia, unspecified; K21.9 Gastro-esophageal reflux disease without esophagitis; M19.90 Unspecified osteoarthritis, unspecified site; G47.33 Obstructive sleep apnea (adult) (pediatric); E11.40 Type 2 diabetes mellitus with diabetic neuropathy, unspecified; I11.0 Hypertensive heart disease with heart failure; I50.9 Heart failure, unspecified; Z86.79 Personal history of other diseases of the circulatory system; Z87.891 Personal history of nicotine dependence; Z79.82 Long term (current) use of aspirin; Z79.84 Long term (current) use of oral hypoglycemic drugs; Z79.02 Long term (current) use of antithrombotics/antiplatelets; Z79.52 Long term (current) use of systemic steroids; Z79.899 Other long term (current) drug therapy
CPT/HCPCS: 71046; 80053; 82803; 83735; 83880; 84145; 84484; 85025; 87428-QW; 93005; 93010; 94640; 94664; 99285-25; A9270; J7512

== ENCOUNTER 2024-09-06 06:27 | Inpatient (IN) | payer MEDICARE, OTHER ==
[~2024-09-06] VITALS: Ht 165.1 cm; Wt 88.9 kg
[2024-09-06] MEDS ORDERED: Ipratropium/Albuterol SulF 2.5-0.5MG/3 ML Amp INH PRN (06:50)
[2024-09-06] MEDS ORDERED: Albuterol 2.5 MG/3 ML VIAL INH SCH (07:15)
[2024-09-06 07:18] LABS: BASOPHILS ABSOLUTE AUTO 0.06 K/mm3 (0.00-0.23); BASOPHILS PERCENT AUTO 1 % (0-2); EOSINOPHILS ABSOLUTE AUTO 0.31 K/mm3 (0.00-0.68); EOSINOPHILS PERCENT AUTO 3 % (0-6); Hematocrit 50.3 % (37.0-53.0); Hemoglobin 16.7 g/dL (13.5-17.5); IMMATURE GRAN ABSOLUTE AUTO 0.15 K/mm3 (0.00-0.10); IMMATURE GRAN PERCENT AUTO 2 % (0-1); LYMPHOCYTES PERCENT AUTO 26 % (21-46); MONOCYTES ABSOLUTE AUTO 0.73 K/mm3 (0.16-1.47); MONOCYTES PERCENT AUTO 8 % (4-13); Mean Corpuscular HGB Conc 33.2 g/dL (31.5-36.5); Mean Corpuscular Volume 88 fL (80-100); Mean Platelet Volume 9.7 fL (9.1-12.4); NEUTROPHILS ABSOLUTE AUTO 5.48 K/mm3 (1.96-9.15); NEUTROPHILS PERCENT AUTO 60 % (41-73); Platelet Count 286 K/mm3 (150-400); RDW Coefficient Variation 14.9 % (11.7-14.2); RDW Standard Deviation 47.7 fL (35.1-46.3); Red Blood Cell Count 5.75 M/mm3 (4.30-5.90); White Blood Cell Count 9.13 K/mm3 (4.00-11.30)
[2024-09-06] MEDS ORDERED: Azithromycin 500 MG in NS 250 ML IV ONE (07:20)
[2024-09-06] MEDS ORDERED: MethylPREDNISolone Sod Succ 125 MG Vial IV ONE (07:20)
[2024-09-06] MEDS ORDERED: CefTRIAXone Sodium 1,000 MG in NS 100 ML IV ONE (07:20)
[2024-09-06 07:39] LABS: Albumin/Globulin Ratio 0.9 (0.8-1.8); Bilirubin, Total 0.5 mg/dL (0.1-1.0); Bun/Creatinine Ratio 19.8 (12.0-20.0); Calcium, Blood 8.3 mg/dL (8.5-10.1); Creatinine, Blood 0.96 mg/dL (0.60-1.20); Globulin, Blood 3.2 g/dL (2.2-4.0); Potassium, Blood 3.8 mmol/L (3.5-5.5); Total Protein, Blood 6.2 g/dL (6.4-8.2)
[2024-09-06] MEDS ORDERED: Aspirin 325 MG Tab PO ONE (08:05)
[2024-09-06 14:45] VITALS: BP 146/54
[2024-09-06 15:14] LABS: Influenza A, PCR NEGATIVE (NEGATIVE); Influenza B, PCR NEGATIVE (NEGATIVE); Resp Syncytial Virus, PCR NEGATIVE (NEGATIVE); SARS-Cov-2 (COVID-19) PCR, MMC NEGATIVE (NEGATIVE)
--- NOTE | 2024-09-06 15:14 | NUR ---
ADMIT NOTE- PT ADMITTED THROUGH THE ED. PT ARRIVED ON MEDICAL FLOOR VIA WC, HE DID NOT APPEAR TO BE IN DISTRESS, BUT HIS BREATHING IS LABORED AND RESP RATE ELEVATED 40 BREATHS PER MINUTE. SATS 93% ON ROOM AIR. PLACED ON OXYMASK TO RELIEVE THE WOB. RESP RATE STILL ELEVATED, PT IS BECOMING SWEATY WITH THE EFFORT. CALLED RT FOR TREATMENT, THEY ARE CURRENTLY UNAVAILABLE. PLACED TELE BOX. HR TACHY BUT NSR.
--- NOTE | 2024-09-06 15:58 | NUR ---
PT BREATHING- RESP RATE ELEVATED TO 40 UPON ARRIVAL. PT RESP RATE DECREASED TO 32 WHILE HE WAS SLEEPING BRIEFLY. RT CAME TO THE BEDSIDE AND SET UP BIPAP. PT PLACED ON BIPAP. RESP RATE DECREASED TO 20-25 AFTER SEVERAL MINUTES ON BIPAP. PULSE OX PLACED. PT SATS STILL GOOD, BUT WORK OF BREATHING IS DECREASED. ACCESSORY MUSCLE USE STILL EVIDENT. WILL CTM. RT AT THE BEDSIDE RIGHT NOW.
[2024-09-06 16:35] LABS: Base Excess Venous 2.3 mmol/L; Bicarbonate Venous 25.3 mmol/L (24.0-30.0); PCO2 Venous 47.2 mmHg (38-42)
[2024-09-06 16:37] LABS: pH Blood Venous 7.37 (7.34-7.37)
[2024-09-06] MEDS ORDERED: Metoprolol Tartrate 50 MG Tab PO SCH (17:00)
[2024-09-06 17:45] VITALS: BP 114/69
--- NOTE | 2024-09-06 18:24 | NUR ---
SHIFT SUMMARY- PT RESP RATE IMPROVES AND HE RELAXES ON THE BIPAP MACHINE. HE ATTEMPTED TO STAND AND USE THE URINAL ON THE BIPAP ANND PANICKED SAYING HE COULD NOT BREATHE. THE MASK WAS DC'D SO HE COULD RELAX AND STOP HIS PANICK. HIS SON ARRIVED AND HE WAS ASSISTED BACK ONTO THE BIPAP (PER HIS REQUEST), DINNER ARRIVED, THE PT WANTED TO WAIT A LITTLE AND STAY ON THE BIPAP. AT 1820 HE FELT READY TO COME OFF. PLACED ON 5L VIA NC WHILE HE IS EATING. PT IS SITTING UP AT THE EOB EATING HIS DINNER, SON AT THE BEDSIDE. SON HAS BEEN ASKED TO PROVIDE A MEDICATION LIST, SON STATES HIS MANAGES THE PT MEDICATIONS. CALL LIGHT IS IN REACH AND PT CALLS APPROPRIATELY. PT WILL GO BACK ON THE BI-PAP ONCE HE COMPLETES HIS FOOD. NO CURRENT S&S OF DISTRESS NOTED. WILL PASS ON TO NIGHT RN IN BEDSIDE REPORT.
[2024-09-06 20:34] VITALS: BP 147/69
[2024-09-06] MEDS ORDERED: Lactobacil 2-S.Thermo-Bifido 1 1 Cap PO SCH (21:00)
[2024-09-06] MEDS ORDERED: Gabapentin 300 MG Cap PO SCH (21:00)
[2024-09-06 23:53] VITALS: BP 142/63
[2024-09-07 03:08] VITALS: BP 146/73
[2024-09-07] MEDS ORDERED: Ipratropium/Albuterol SulF 2.5-0.5MG/3 ML Amp INH PRN (03:15)
--- NOTE | 2024-09-07 03:26 | NUR ---
INTERIOR DESIGN COORDINATOR SUMMARY: PT A&O X3-4. MAKES NEEDS KNOWN. NO ACUTE DISTRESS OR CHANGES T/O SHIFT. RESTING IN BED WITH BIPAP AT SHIFT CHANGE. PT REQUESTED TO TAKE A BREAK FROM BIPAP x3 T/O SHIFT. SATS MAINTAINED ABOVE 92% ON 7L USING MASK WHILE OFF BIPAP. PT RESPIRATORY RATE RELAXES WHEN ON BIPAP. TELE IN PLACE: SR 80'S. DENIES CHEST PAIN / PRESSURE. CRITICAL TROPONIN LEVEL AT 272 REC'D AT APPROX 2024. OPERATIONS EXAMINER AND PROVIDER NOTIFIED. NO NEW ORDERS. RT IN TO ASSESS PT DURING SHIFT. INDEPENDENT WITH BED MOBILITY. USES URINAL AT EOB INDEPENDENTLY. BED IN LOWEST POSITION. CALL LIGHT IN REACH. CARES ONGOING ORDERED.
[2024-09-07 05:56] LABS: BASOPHILS ABSOLUTE AUTO 0.05 K/mm3 (0.00-0.23); BASOPHILS PERCENT AUTO 0 % (0-2); EOSINOPHILS ABSOLUTE AUTO 0.01 K/mm3 (0.00-0.68); EOSINOPHILS PERCENT AUTO 0 % (0-6); Hematocrit 49.5 % (37.0-53.0); IMMATURE GRAN ABSOLUTE AUTO 0.31 K/mm3 (0.00-0.10); IMMATURE GRAN PERCENT AUTO 2 % (0-1); LYMPHOCYTES ABSOLUTE AUTO 1.66 K/mm3 (0.84-5.20); LYMPHOCYTES PERCENT AUTO 10 % (21-46); MONOCYTES ABSOLUTE AUTO 1.08 K/mm3 (0.16-1.47); MONOCYTES PERCENT AUTO 7 % (4-13); Mean Corpuscular HGB 28.1 pg (26.0-34.0); Mean Corpuscular HGB Conc 32.3 g/dL (31.5-36.5); Mean Corpuscular Volume 87 fL (80-100); Mean Platelet Volume 9.6 fL (9.1-12.4); NEUTROPHILS ABSOLUTE AUTO 13.53 K/mm3 (1.96-9.15); NEUTROPHILS PERCENT AUTO 81 % (41-73); Platelet Count 304 K/mm3 (150-400); RDW Coefficient Variation 15.1 % (11.7-14.2); RDW Standard Deviation 48.2 fL (35.1-46.3); Red Blood Cell Count 5.69 M/mm3 (4.30-5.90); White Blood Cell Count 16.64 K/mm3 (4.00-11.30)
[2024-09-07 06:30] LABS: Bun/Creatinine Ratio 26.4 (12.0-20.0); Calcium, Blood 9.1 mg/dL (8.5-10.1); Creatinine, Blood 0.8 mg/dL (0.60-1.20); Potassium, Blood 4.6 mmol/L (3.5-5.5)
[2024-09-07 07:21] VITALS: BP 131/68
[2024-09-07] MEDS ORDERED: Clopidogrel Bisulfate 75 MG Tab PO SCH (09:00)
[2024-09-07] MEDS ORDERED: CefTRIAXone Sodium 1,000 MG in NS 100 ML IV SCH (09:00)
[2024-09-07] MEDS ORDERED: Furosemide 40 MG Tab PO SCH (09:00)
[2024-09-07] MEDS ORDERED: Azithromycin 500 MG in NS 250 ML IV SCH (09:00)
[2024-09-07] MEDS ORDERED: Aspirin 81 MG TabEC PO SCH (09:00)
[2024-09-07] MEDS ORDERED: Rosuvastatin Calcium 10 MG Tab PO SCH (09:00)
[2024-09-07] MEDS ORDERED: Cholecalciferol 1000 Unit Tablet (=25MCG) PO SCH (09:00)
[2024-09-07] MEDS ORDERED: Enoxaparin 40 MG/0.4 ML SYR SC SCH (09:00)
[2024-09-07] MEDS ORDERED: Lisinopril 5 MG Tab PO SCH (09:00)
[2024-09-07] MEDS ORDERED: NS 250 ML IV PRN (09:00)
[2024-09-07] MEDS ORDERED: Potassium Chloride 10 Meq Tablet SA PO SCH (09:00)
[2024-09-07] MEDS ORDERED: Tamsulosin HCl 0.4 MG Cap PO SCH (09:00)
--- NOTE | 2024-09-07 10:53 | NUR ---
PT SITTING ON SIDE OF BED INTRODUCED MYSELF EXPLAINED TO PT I WOULD BE ASSUMING CARE FROM JJ FRIEND PT STATED THEY WERE COMFORTABLE AND DID NOT NEED ANYTHING
[2024-09-07] MEDS ORDERED: IPRAT-ALBUT 0.5-3 ML INH (12:46)
[2024-09-07] MEDS ORDERED: JARDIANCE10 MG PO (12:47)
--- NOTE | 2024-09-07 13:01 | NUR ---
PT FAMILY PROVIDED ACTIVE MEDICATION LIST FOR THE PT- HOME MED REC WAS COMPLETED. CALLED DR ACKERMAN AND LEFT A MESSAGE SOME MEDICATIONS ARE DIFFERENT THAN PREVIOUSLY NOTED BY THE ED RN.
[2024-09-07 14:20] VITALS: BP 111/55
[2024-09-07] MEDS ORDERED: ISOSORBIDE MONO60 MG PO (14:51)
[2024-09-07] MEDS ORDERED: Sennosides 8.6 MG Tab PO SCH (14:55)
[2024-09-07 16:12] VITALS: BP 118/50
[2024-09-07 17:10] VITALS: BP 128/60
--- NOTE | 2024-09-07 17:25 | NUR ---
SHIFT SUMMARY- PT ALERT AND ORIENTED 1PA WITH TRANSFERS. PT HAS BEEN BACK AND FORTH BETWEEN THE BIPAP AND NC T/O THE DAY. HE TENDS TO BREATHE VERY SHALLOW AND FAST WHEN NOT ON THE BIPAP. ANY SMALL AMOUTN OF ACTIVITY CAN DRIVE HIS RESP RATE UP GREATER THAN 30. HE SEEMS TO BE FEELING BETTER THIS EVENING, HAVING MORE ENERGY THAN YESTERDAY. PT WAS ASSISTED UP INTO A RECLINER, HE STATES THAT MADE HIM FEEL A LOT BETTER. PT WAS SITTING WITH HIS SON AT THE CHAIR SIDE, HIS OTHER SON SHANAE CAME TO VISIT THIS EVENING, HE LEFT TO TAKE THE FIRST SON HOME AND GET SOME SNACKS FOR THE PT. PT SITTING UP IN THE RECLINER ON NC AT THIS TIME, RESP ELEVATED TO 26 NO S&S OF DISTRESS NOTED. WILL PASS ON IN REPORT TO THE NIGHT RN.
[2024-09-07 20:08] VITALS: BP 150/80
[2024-09-07] MEDS ORDERED: Saline Nasal Spray 45 ML PRN (20:55)
[2024-09-07] MEDS ORDERED: Empagliflozin 10 MG TAB PO SCH (21:00)
[2024-09-08] VITALS (8 sets, daily range): BP systolic 79–124; BP diastolic 47–55
--- NOTE | 2024-09-08 04:50 | NUR ---
SHIFT SUMMARY NOC PT A/O X 4. PLEASANT AND COOPERATIVE WITH CARE. VSS. AT BEGINNING OF SHIFT PT HAD EPISODE OF EPISTAXIS THAT SUBSIDED QUICKLY. PT WAS WEAING BIPAP WHEN EPISODE HAPPENED AND DECLINED TO PUT IT BACK ON AND INSTEAD WEARING 5L/NC HUMIDIFIED AIR, AND ORDER FOR NS NASAL SPRAY GIVEN. PT SPO2 >94% ON BIOX. PT ON TELE SINUS IN 70'S. PT CURRENTLY RESTING WITH BED IN LOWEST POSITION, AND CALL LIGHT WITHIN REACH.
[2024-09-08 05:18] LABS: BASOPHILS ABSOLUTE AUTO 0.05 K/mm3 (0.00-0.23); BASOPHILS PERCENT AUTO 1 % (0-2); EOSINOPHILS PERCENT AUTO 2 % (0-6); Hematocrit 49.6 % (37.0-53.0); Hemoglobin 16.2 g/dL (13.5-17.5); IMMATURE GRAN ABSOLUTE AUTO 0.12 K/mm3 (0.00-0.10); IMMATURE GRAN PERCENT AUTO 1 % (0-1); LYMPHOCYTES ABSOLUTE AUTO 3.16 K/mm3 (0.84-5.20); LYMPHOCYTES PERCENT AUTO 29 % (21-46); MONOCYTES ABSOLUTE AUTO 0.89 K/mm3 (0.16-1.47); MONOCYTES PERCENT AUTO 8 % (4-13); Mean Corpuscular HGB 28.8 pg (26.0-34.0); Mean Corpuscular HGB Conc 32.7 g/dL (31.5-36.5); Mean Corpuscular Volume 88 fL (80-100); Mean Platelet Volume 9.6 fL (9.1-12.4); NEUTROPHILS ABSOLUTE AUTO 6.44 K/mm3 (1.96-9.15); NEUTROPHILS PERCENT AUTO 59 % (41-73); Platelet Count 285 K/mm3 (150-400); RDW Standard Deviation 48.8 fL (35.1-46.3); Red Blood Cell Count 5.62 M/mm3 (4.30-5.90); White Blood Cell Count 10.86 K/mm3 (4.00-11.30)
[2024-09-08 05:45] LABS: Bun/Creatinine Ratio 23.5 (12.0-20.0); Creatinine, Blood 0.94 mg/dL (0.60-1.20)
[2024-09-08] MEDS ORDERED: Lisinopril 5 MG Tab PO SCH (09:00)
[2024-09-08] MEDS ORDERED: Isosorbide Mononitrate 60 MG TABCR PO SCH (09:00)
[2024-09-08] MEDS ORDERED: Sennosides 8.6 MG Tab PO SCH (09:00)
[2024-09-08] MEDS ORDERED: Furosemide 20 MG Tab PO SCH (09:00)
--- NOTE | 2024-09-08 19:03 | NUR ---
SHIFT SUMMARY PT IS A/OX4, INDEPENDENT IN THE ROOM. NO ACUTE CHANGES THROUGHOUT THIS SHIFT. PT REMAINS ON 5L NC, SATS MAINTAINING >92% USING CONT PULSE OX. ON TELE RUNNING NORMAL SINUS RYTHYM IN THE 70'S. CONTINUING IV ANTIBIOTICS. PT IS PLEASANT AND COOPERATIVE WITH CARE AND CALLS APPROPRIATLEY USING THE CALL LIGHT.
--- NOTE | 2024-09-08 23:37 | NUR ---
NOTIFIED BY ART DIRECTOR PT HAVING ST ELEVATIONS SINCE 1800. PT ASSESSED AND HAD NO C/O OF CP, PALPITATIONS. HOSPITALIST NOTIFIED AND EKG ORDERED. EKG SHOWED NO NEW FINDINGS AND HOSPITALIST NOTIFIED. WILL CONTNUE WITH CONTINOUS CARDIAC MONITORING.
[2024-09-09 00:09] VITALS: BP 124/54
[2024-09-09 04:59] VITALS: BP 108/48
--- NOTE | 2024-09-09 06:10 | NUR ---
SHIFT SUMMARY NOC PT A/O X 4. PLEASANT AND COOPERATIVE WITH CARE. VSS PT HAD SOME ST ELEVATIONS PER TELE, HOSPITALIST NOTIFIED AND EKG PERFORMED WHICH SHOWED NO NEW FINDINGS OR ST CHANGES, PT OTHERWISE SINUS RHYTHM IN 70'S. PT ON 5L/NC WHILE AWAKE SPO2 >95%, AND PT AGREED TO WEAR BIPAP FOR SLEEP AFTER EDUCATION BY RT AND TOLERATED OFF AND ON. PT HAD PE STUDY THAT WAS NEGATIVE YESTERDAY. PT CURRENTLY RESTING WITH BED IN LOWEST POSITION, AND CALL LIGHT WITHIN REACH.
[2024-09-09 07:58] VITALS: BP 119/55
[2024-09-09] MEDS ORDERED: PredniSONE 20 MG Tab PO SCH (15:00)
--- NOTE | 2024-09-09 16:33 | NUR ---
SHIFT SUMMARY PT CONT LEVEL OF CARE. PT NOTED TO BE A&OX 4 AND AX1 WITH AMBULATION. PT CONT TO REQUIRE 5L/NC DURING THE DAY. PT NOTED TO CALL APPROPRIATE AND COMMUNICATE NEEDS. PT CONT WITH IV ABT. PT STARTED ON STEROIDS THIS SHIFT.
[2024-09-09 17:09] VITALS: BP 139/66
[2024-09-09] MEDS ORDERED: FINA5 PO (18:07)
[2024-09-09] MEDS ORDERED: ALBU90OI INH (18:07)
[2024-09-09 20:06] VITALS: BP 149/63
[2024-09-10 00:29] VITALS: BP 124/64
[2024-09-10 04:58] VITALS: BP 126/60
--- NOTE | 2024-09-10 05:11 | NUR ---
PT A&O X4, VS WNL, PO INTAKE WNL, AND CONTINENT OF B&B WITH OUTPUT ABOVE AVERAGE. PT ONLY SLEPT WITH CPAP FOR SHORT TIME, THEN REQUESTED IT OFF AND O2 SATS WERE >90% SO THEN SLEPT ON RA WITH SATS MAINTAINING ABOVE 90%. PT TELE NSR WITH BBB. NEBS PRN, NONE REQUESTED. L/S WITH COARSENESS, WILL MONITOR.
[2024-09-10 06:04] LABS: BASOPHILS ABSOLUTE AUTO 0.03 K/mm3 (0.00-0.23); BASOPHILS PERCENT AUTO 0 % (0-2); EOSINOPHILS PERCENT AUTO 0 % (0-6); Hematocrit 48.6 % (37.0-53.0); Hemoglobin 15.6 g/dL (13.5-17.5); IMMATURE GRAN ABSOLUTE AUTO 0.08 K/mm3 (0.00-0.10); IMMATURE GRAN PERCENT AUTO 1 % (0-1); LYMPHOCYTES ABSOLUTE AUTO 1.53 K/mm3 (0.84-5.20); LYMPHOCYTES PERCENT AUTO 17 % (21-46); MONOCYTES ABSOLUTE AUTO 0.47 K/mm3 (0.16-1.47); MONOCYTES PERCENT AUTO 5 % (4-13); Mean Corpuscular HGB 28.2 pg (26.0-34.0); Mean Corpuscular HGB Conc 32.1 g/dL (31.5-36.5); Mean Corpuscular Volume 88 fL (80-100); Mean Platelet Volume 9.7 fL (9.1-12.4); NEUTROPHILS ABSOLUTE AUTO 7.13 K/mm3 (1.96-9.15); NEUTROPHILS PERCENT AUTO 77 % (41-73); Platelet Count 268 K/mm3 (150-400); RDW Coefficient Variation 14.2 % (11.7-14.2); RDW Standard Deviation 45.4 fL (35.1-46.3); Red Blood Cell Count 5.54 M/mm3 (4.30-5.90); White Blood Cell Count 9.24 K/mm3 (4.00-11.30)
[2024-09-10 06:28] LABS: Bun/Creatinine Ratio 25.8 (12.0-20.0); Calcium, Blood 9.1 mg/dL (8.5-10.1); Creatinine, Blood 0.85 mg/dL (0.60-1.20); Potassium, Blood 4.2 mmol/L (3.5-5.5)
[2024-09-10 07:30] VITALS: BP 138/78
[2024-09-10] MEDS ORDERED: PRED20 PO (14:16)
[2024-09-10] MEDS ORDERED: VISBIOME 112.51 EACH PO (14:17)
[2024-09-10] MEDS ORDERED: AMOCLA875 PO (14:17)
[2024-09-10] MEDS ORDERED: FLUTICASONE-SA1 EAC1 INH (14:18)
--- NOTE | 2024-09-10 16:58 | NUR ---
ASSSUMED CARE OF PT. VERY PLEASENT AND COOPERATIVE WITH CARE. PT ON RA AND BREATHING WELL, STATED HE FELT MUCH BETTER TODAY AND WAS WAITING ON MD. DR ACKERMAN IN WITH DISCHARGE ORDERS, RT MARCIAAL DONE. PT FAMILY IN TO [facility] PT. PT DISCHARGED .
== END 2024-09-10 15:53 | disposition home or self-care (01) | DRG 871 ==
LOC: ER 06:27 → ERHOLD 09:12 → MEDS 09:12
PROVIDERS: Student in an Organized Health Care Education/Training Program; ADMIT Family Medicine
PROC: 5A09457 Assistance with Respiratory Ventilation, 24-96 Consecutive Hours, Continuous Positive Airway Pressure (ICD-10-PCS; principal; 2024-09-06)
DX: A41.9 Sepsis, unspecified organism (principal); J18.9 Pneumonia, unspecified organism; J96.01 Acute respiratory failure with hypoxia; J44.1 Chronic obstructive pulmonary disease with (acute) exacerbation; J44.0 Chronic obstructive pulmonary disease with (acute) lower respiratory infection; R65.20 Severe sepsis without septic shock; E78.5 Hyperlipidemia, unspecified; K21.9 Gastro-esophageal reflux disease without esophagitis; N40.0 Benign prostatic hyperplasia without lower urinary tract symptoms; M19.90 Unspecified osteoarthritis, unspecified site; E11.40 Type 2 diabetes mellitus with diabetic neuropathy, unspecified; I11.0 Hypertensive heart disease with heart failure; I50.9 Heart failure, unspecified; I35.0 Nonrheumatic aortic (valve) stenosis; R79.89 Other specified abnormal findings of blood chemistry; G47.30 Sleep apnea, unspecified; Z95.2 Presence of prosthetic heart valve; Z87.19 Personal history of other diseases of the digestive system; Z79.84 Long term (current) use of oral hypoglycemic drugs; Z79.82 Long term (current) use of aspirin; Z79.51 Long term (current) use of inhaled steroids; Z79.811 Long term (current) use of aromatase inhibitors; Z79.52 Long term (current) use of systemic steroids; Z79.899 Other long term (current) drug therapy; Z79.2 Long term (current) use of antibiotics; Z90.49 Acquired absence of other specified parts of digestive tract; Z98.890 Other specified postprocedural states; Z87.891 Personal history of nicotine dependence; Z86.73 Personal history of transient ischemic attack (TIA), and cerebral infarction without residual deficits
CPT/HCPCS: 0241U; 36415; 71045; 71260; 80048; 80053; 82803; 83605; 83880; 84484; 85025; 87040; 87070; 87205; 92610; 93005; 93010; 94640; 94644; 94660; 94664; 94761; 94762; 96365; 96367; 96375; 99285-25; A9270; J0456; J0696; J1650; J2919; J7050; J7512; Q9967

== ENCOUNTER 2025-01-18 09:06 | Emergency (ER) | payer MEDICARE, OTHER ==
[~2025-01-18] VITALS: Ht 165.1 cm; Wt 88.9 kg
[~2025-01-18 09:06] MED LIST changes: +FINA5 PO; +FLUTICASONE-SA1 EAC1 INH; +ISOSORBIDE MONO60 MG PO; +JARDIANCE10 MG PO; +VISBIOME 112.51 EACH PO
[2025-01-18 09:12] VITALS: BP 169/74
== END 2025-01-18 09:23 | disposition home or self-care (01) ==
LOC: ER 09:06
DX: S01.81XA Laceration without foreign body of other part of head, initial encounter (principal); I10 Essential (primary) hypertension; J44.9 Chronic obstructive pulmonary disease, unspecified; K21.9 Gastro-esophageal reflux disease without esophagitis; W26.8XXA Contact with other sharp object(s), not elsewhere classified, initial encounter; Z87.891 Personal history of nicotine dependence
CPT/HCPCS: 99282

== ENCOUNTER 2025-05-13 07:53 | Inpatient (IN) | payer MEDICARE, OTHER ==
[2025-05-13] VITALS (15 sets, daily range): BP systolic 103–147; BP diastolic 47–95
[~2025-05-13] VITALS: Ht 165.1 cm; Wt 79.5 kg
[2025-05-13] MEDS ORDERED: Albuterol 2.5 MG/3 ML VIAL ONE (07:57)
[2025-05-13] MEDS ORDERED: Albuterol 2.5 MG/3 ML VIAL INH SCH (08:05)
[2025-05-13 08:11] LABS: pH Blood Venous 7.22 (7.34-7.37)
[2025-05-13 08:14] LABS: Hematocrit 52.4 % (37.0-53.0); Hemoglobin 16.6 g/dL (13.5-17.5); Mean Corpuscular HGB Conc 31.7 g/dL (31.5-36.5); Mean Corpuscular Volume 91 fL (80-100); NRBC ABSOLUTE 0.00 K/mm3 (0.00-0.02); NRBC Auto 0.0 /100 WBC (0.0-0.2); Platelet Count 202 K/mm3 (150-400); RDW Coefficient Variation 16.3 % (11.7-14.2); RDW Standard Deviation 53.9 fL (35.1-46.3)
[2025-05-13 08:34] LABS: Alanine Aminotransfer (ALT/SGP 25.0 U/L (12-78); Albumin, Blood 3.1 g/dL (3.4-5.0); Albumin/Globulin Ratio 0.7 (0.8-1.8); Anion Gap 10.0 mmol/L (3-11); Aspartate Aminotrans (AST/SGOT 21.0 U/L (12-37); Bilirubin, Total 0.5 mg/dL (0.1-1.0); Blood Urea Nitrogen 19.0 mg/dL (8-24); CO2, Blood 24.0 mmol/L (21-32); Calcium, Blood 9.0 mg/dL (8.5-10.1); Chloride, Blood 107.0 mmol/L (98-108); Creatinine, Blood 0.91 mg/dL (0.60-1.20); Globulin, Blood 4.3 g/dL (2.2-4.0); Glucose, Blood 203.0 mg/dL (70-99); Potassium, Blood 4.5 mmol/L (3.5-5.5); Sodium, Blood 136.0 mmol/L (136-145); Total Protein, Blood 7.4 g/dL (6.4-8.2)
[2025-05-13 08:39] LABS: BASOPHILS ABSOLUTE MAN 0.00 K/mm3 (0.00-0.23); BASOPHILS PERCENT MAN 0 % (0-2); EOSINOPHILS ABSOLUTE MAN 0.00 K/mm3 (0.00-0.68); EOSINOPHILS PERCENT MAN 0 % (0-6); LYMPHOCYTES ABSOLUTE MAN 6.47 K/mm3 (0.84-5.20); LYMPHOCYTES PERCENT MAN 51 % (21-46); MONOCYTES ABSOLUTE MAN 1.14 K/mm3 (0.16-1.47); MONOCYTES PERCENT MAN 9 % (4-13); NEUTROPHILS ABSOLUTE MAN 5.07 K/mm3 (1.96-9.15); SEG NEUTROPHILS PERCENT MAN 40 % (41-73)
[2025-05-13] MEDS ORDERED: CefTRIAXone Sodium 1,000 MG in NS 50 ML IV ONE (08:55)
[2025-05-13] MEDS ORDERED: Ondansetron HCl 2 MG / ML 2ML Vial IV PRN (10:40)
[2025-05-13] MEDS ORDERED: FLU VACC TS2025-26(6MOS UP)/PF 45 MCG/0.5 ML SYRINGE IM ONE (10:40)
[2025-05-13] MEDS ORDERED: Ipratropium/Albuterol SulF 2.5-0.5MG/3 ML Amp INH SCH (10:45)
--- NOTE | 2025-05-13 11:00 | NUR ---
PT ARRIVES TO ICU 2 FROM ER. ON 8L HFNC. A/O X4, SPEAKING IN FULL SENTENCE, DOES NOT APPEAR IN DISTRESS. PT HELPS TURN SELF IN BED. PUREWICK IN PLACE. FAMILY AT BEDSIDE.
[2025-05-13] MEDS ORDERED: BREZTRI AEROS10.7 GM INH (11:25)
[2025-05-13] MEDS ORDERED: JARDIANCE10 MG PO (11:27)
[2025-05-13] MEDS ORDERED: VITAMIN D5000 UNIT PO (11:27)
[2025-05-13] MEDS ORDERED: DOCU100 PO (11:28)
[2025-05-13] MEDS ORDERED: Insulin Human Lispro 100 Units/ML 3ML Syringe SC SCH (11:30)
[2025-05-13] MEDS ORDERED: Formoterol/Mometasone MDI 5/100 mcg 13 GM INH SCH (11:45)
--- NOTE | 2025-05-13 12:01 | NUR ---
DR. SIMENTAL CAME BY CARDIOLOGY CONSULT. DISCONTINUED HEPARIN GTT AND TROPONINS. CONTINUE PLAVIX AND ASA. DOES NOT NEED ECHO PT HAD ONE [address] SIMENTAL IS ABLE TO REVIEW, ALSO ABLE TO REVIEW LABS AND TROPONINS ARE TRENDING THE SAME.
[2025-05-13 12:06] LABS: pH Blood Venous 7.39 (7.34-7.37)
[2025-05-13 12:40] LABS: Prothrombin Time Results 10.5 Sec (9.7-11.5)
[2025-05-13 13:14] LABS: Influenza A, PCR NEGATIVE (NEGATIVE); Influenza B, PCR NEGATIVE (NEGATIVE); Resp Syncytial Virus, PCR NEGATIVE (NEGATIVE); SARS-Cov-2 (COVID-19) PCR, MMC NEGATIVE (NEGATIVE)
--- NOTE | 2025-05-13 17:46 | NUR ---
SUMMARY PT ADMITTED THIS AM FROM ER. HAS BEEN ON HFNC SINCE ARRIVAL. A/O X4, DENIES CP, STATES BREATHING HAS IMPROVED. DIURESING WELL. TOLERATING MEALS. NO SIGN OF DISTRESS.
[2025-05-13] MEDS ORDERED: Isosorbide Mononitrate 60 MG TABCR PO SCH (21:00)
[2025-05-14] VITALS (18 sets, daily range): BP systolic 96–129; BP diastolic 42–71
[2025-05-14 03:42] LABS: BASOPHILS ABSOLUTE AUTO 0.01 K/mm3 (0.00-0.23); BASOPHILS PERCENT AUTO 0 % (0-2); EOSINOPHILS ABSOLUTE AUTO 0.00 K/mm3 (0.00-0.68); EOSINOPHILS PERCENT AUTO 0 % (0-6); Hematocrit 45.7 % (37.0-53.0); Hemoglobin 15.2 g/dL (13.5-17.5); IMMATURE GRAN ABSOLUTE AUTO 0.08 K/mm3 (0.00-0.10); IMMATURE GRAN PERCENT AUTO 1 % (0-1); LYMPHOCYTES ABSOLUTE AUTO 1.16 K/mm3 (0.84-5.20); LYMPHOCYTES PERCENT AUTO 10 % (21-46); MONOCYTES ABSOLUTE AUTO 0.77 K/mm3 (0.16-1.47); MONOCYTES PERCENT AUTO 6 % (4-13); Mean Corpuscular HGB Conc 33.3 g/dL (31.5-36.5); Mean Corpuscular Volume 88 fL (80-100); NEUTROPHILS ABSOLUTE AUTO 10.09 K/mm3 (1.96-9.15); NEUTROPHILS PERCENT AUTO 83 % (41-73); NRBC ABSOLUTE 0.00 K/mm3 (0.00-0.02); NRBC Auto 0.0 /100 WBC (0.0-0.2); Platelet Count 179 K/mm3 (150-400); RDW Coefficient Variation 15.9 % (11.7-14.2); RDW Standard Deviation 50.4 fL (35.1-46.3)
[2025-05-14 04:04] LABS: Alanine Aminotransfer (ALT/SGP 21.0 U/L (12-78); Albumin, Blood 2.6 g/dL (3.4-5.0); Albumin/Globulin Ratio 0.7 (0.8-1.8); Anion Gap 10.0 mmol/L (3-11); Aspartate Aminotrans (AST/SGOT 18.0 U/L (12-37); Bilirubin, Total 0.5 mg/dL (0.1-1.0); Blood Urea Nitrogen 31.0 mg/dL (8-24); CO2, Blood 28.0 mmol/L (21-32); Calcium, Blood 8.9 mg/dL (8.5-10.1); Chloride, Blood 101.0 mmol/L (98-108); Creatinine, Blood 1.12 mg/dL (0.60-1.20); Globulin, Blood 3.6 g/dL (2.2-4.0); Glucose, Blood 193.0 mg/dL (70-99); Potassium, Blood 4.1 mmol/L (3.5-5.5); Sodium, Blood 135.0 mmol/L (136-145); Total Protein, Blood 6.2 g/dL (6.4-8.2)
--- NOTE | 2025-05-14 04:33 | NUR ---
SHIFT SUMMARY: PATIENT IS A&OX4. TELE SHOWS SINUS RHYTHM WITH PVC'S AND RATE BETWEEN 70'S-80'S BPM. PATIENT IS ON 4L OXYGEN VIA HIGHFLOW NC WITH >90% SPO2. PATIENT HAS DENIED PAIN THROUGHOUT SHIFT. MALE PUREWICK IN PLACE AND ON LOW CONTINUOUS WALL SUCTION WITH YELLOW URINE OUTPUT IN CAN. PATIENT IS TOLERATING PO INTAKE BUT NO BM DURING THE SHIFT AT THIS TIME. PATIENT WAS EDUCATED THROUGHOUT THE SHIFT ON THE IMPORTANCE OF REPOSITIONING WHILE IN BED TO PREVENT SKIN BREAKDOWN AND IMPROVE CIRCULATION. PATIENT DURING EACH EDUCATION WOULD VERBALIZE UNDERSTANDING, BUT CONTINUE TO DECLINE BEING REPOSITIONED. PATIENT IS CURRENTLY LAYING IN BED WITH CALL LIGHT IN REACH. PATIENT IS ABLE TO MAKE HIS NEEDS KNOWN AND CALLS APPROPRIATELY.
[2025-05-14] MEDS ORDERED: Cholecalciferol 1000 Unit Tablet (=25MCG) PO SCH (09:00)
--- NOTE | 2025-05-14 10:23 | NUR ---
SOFT BP DR. SIMMONS AWARE OK TO HOLD METOPROLOL AND LASIX THIS AM
[2025-05-14] MEDS ORDERED: Enoxaparin 40 MG/0.4 ML SYR SC SCH (14:00)
--- NOTE | 2025-05-14 14:29 | NUR ---
PALLIATIVE CARE CONSULT RECEIVED FOR ADVANCE CARE PLANNING AND SYMPTOM MANAGEMENT FOR PULMONARY/CARDIAC. PER PT'S SON, PT CODE STATUS IS FULL CODE. NO POLST OR AD ON FILE.
--- NOTE | 2025-05-14 15:31 | NUR ---
INTERPRETOR PHONE PHONE OFFERED TO PATIENT AND SON AND LEFT AT BEDSIDE FOR FUTURE USE
--- NOTE | 2025-05-14 18:33 | NUR ---
SHIFT SUMMARY PATIENT AOX4 ABLE TO MAKE NEEDS KNOWN DENIES CP OR SOB. VITALS STABLE ON 2L NC SATS GREATER THAN 92% BP SOFT DR SIMMONS AWARE AND PARAMETERS ORDERED. TOLERATING HIS MEALS AND VOIDING WITH THE PUREWICK. REPOSTIONING INDEPENDENTLY IN BED AWAITING PT/OT EVAL. DOWN GRADED TO MED TELE AWAITING BED. INTERPRETOR PHONE AT BEDSIDE NEEDED.
[2025-05-15] VITALS (10 sets, daily range): BP systolic 96–125; BP diastolic 45–65
[2025-05-15 07:10] LABS: Hematocrit 46.8 % (37.0-53.0); Hemoglobin 15.4 g/dL (13.5-17.5); Mean Corpuscular HGB Conc 32.9 g/dL (31.5-36.5); Mean Corpuscular Volume 88 fL (80-100); NRBC ABSOLUTE 0.00 K/mm3 (0.00-0.02); NRBC Auto 0.0 /100 WBC (0.0-0.2); Platelet Count 161 K/mm3 (150-400); RDW Coefficient Variation 16.1 % (11.7-14.2); RDW Standard Deviation 51.9 fL (35.1-46.3)
--- NOTE | 2025-05-15 07:17 | NUR ---
SHIFT SUMMARY: PT TRANSFERRED TO PCU 2 FROM ICU 2 AT 0237. THIS RN CALLED HIS SON SHANAE AND INFORMED HIM OF THE MOVE TO PCU @ 0630. PT ORIENTED TO ROOM, STAFF AND CALL LIGHT. PT IS A&OX4, [place], PLEASANT AND COOPERATIVE WITH CARE. PT IS BLIND IN HIS LEFT EYE. ENGLISH IS HIS FIRST LANGUAGE, SPEAKS SAMI WELL, BUT HE IS AWARE WE HAVE BULLET SWAGING MACHINE ADJUSTER PHONES IF NEEDED. SOFT BP, MAP >65, ON 2L OXYGEN VIA NC. SR WITH PVC'S 70'S-80'S. DENIES PAIN. X1 ASSIST WITH FWW, HE USES A CANE AT BASELINE. TOLERATING A CONS CARB DIET. WICKING SYSTEM DRAINING LARGE AMOUNTS OF CLEAR, PALE YELLOW URINE. NO BM THIS SHIFT. BED IN LOWEST POSITION, CALL LIGHT WITHIN REACH. CALLS APPROPRIATELY AND IS ABLE TO ADVOCATE NEEDS EFFECTIVELY.
[2025-05-15 07:26] LABS: Anion Gap 8.0 mmol/L (3-11); Blood Urea Nitrogen 31.0 mg/dL (8-24); CO2, Blood 28.0 mmol/L (21-32); Calcium, Blood 8.9 mg/dL (8.5-10.1); Chloride, Blood 105.0 mmol/L (98-108); Creatinine, Blood 0.94 mg/dL (0.60-1.20); Glucose, Blood 136.0 mg/dL (70-99); Potassium, Blood 3.9 mmol/L (3.5-5.5); Sodium, Blood 137.0 mmol/L (136-145)
--- NOTE | 2025-05-15 09:23 | NUR ---
INITIAL ASSESSMENT: Patient is awake, resting in bed watching TV. He is alert and oriented x4. He denies pain at this time. HRR, SR in the 80s-90s. LS DIM in the bases, biox is mid to high 90s on 2L via NC-this is his home dose of oxygen. BT+, abdomen is midly distended but non-tender. PPP. He has trace edema to BLE. VSS. AM meds given with a sip of water. Patient, denies other needs at this time. Call light in reach.
--- NOTE | 2025-05-15 11:30 | NUR ---
Update: Patient has been up in the chair since shortly after breakfast. He was up ambulating in the hallway with PT. VSS. He denies needs at this time. DIL has been at the bedside this AM checking on the patient. Call light in reach.
--- NOTE | 2025-05-15 17:42 | NUR ---
Summary: Patient has been alert and oriented x3, T/O the shift. No C/O pain, it was noted by OT the patient possibly injured his shoulder last week, MD aware and came to bedsde to evaluate, no new orders. HRR, SR with a BBB in the 80s-90s. VSS. LS CTA, biox has been in the low to mid 90s on RA all afternoon, patient did drop down to 89% while ambulating with OT, MD provided update. Patient does have oxygen at home he wears 2L at night. BT+, he did get a stool softner this shift and was able to have a bm in the afternoon. He was able to ambulate with a FWW around the unit. Plan is for DC tomorrow. No acute changes this shift. Will report to oncoming RN.
--- NOTE | 2025-05-16 00:42 | NUR ---
NURSE NOTE; PT FROM PCU 3 TO ROOM 353. PT TRANSFERED TO FLOOR VIA WHEELCHAIR AND TRANSFERED TO BED INDEPENTLY. PT ORIENTED TO ROOM AND EDUCATED ON HOW TO USE THE CALL LIGHT. BED IN LOWEST POSITION W/ CALL LIGHT IN REACH.
[2025-05-16 06:24] VITALS: BP 104/51
[2025-05-16 07:06] VITALS: BP 105/51
[2025-05-16 07:52] LABS: BASOPHILS ABSOLUTE AUTO 0.03 K/mm3 (0.00-0.23); BASOPHILS PERCENT AUTO 0 % (0-2); EOSINOPHILS ABSOLUTE AUTO 0.10 K/mm3 (0.00-0.68); EOSINOPHILS PERCENT AUTO 1 % (0-6); Hematocrit 47.3 % (37.0-53.0); Hemoglobin 15.6 g/dL (13.5-17.5); IMMATURE GRAN ABSOLUTE AUTO 0.02 K/mm3 (0.00-0.10); IMMATURE GRAN PERCENT AUTO 0 % (0-1); LYMPHOCYTES ABSOLUTE AUTO 2.23 K/mm3 (0.84-5.20); LYMPHOCYTES PERCENT AUTO 28 % (21-46); MONOCYTES ABSOLUTE AUTO 0.77 K/mm3 (0.16-1.47); MONOCYTES PERCENT AUTO 10 % (4-13); Mean Corpuscular HGB Conc 33.0 g/dL (31.5-36.5); Mean Corpuscular Volume 88 fL (80-100); NEUTROPHILS ABSOLUTE AUTO 4.81 K/mm3 (1.96-9.15); NEUTROPHILS PERCENT AUTO 60 % (41-73); NRBC ABSOLUTE 0.00 K/mm3 (0.00-0.02); NRBC Auto 0.0 /100 WBC (0.0-0.2); Platelet Count 159 K/mm3 (150-400); RDW Coefficient Variation 15.9 % (11.7-14.2); RDW Standard Deviation 51.4 fL (35.1-46.3)
[2025-05-16 08:23] LABS: Anion Gap 9.0 mmol/L (3-11); Blood Urea Nitrogen 35.0 mg/dL (8-24); CO2, Blood 28.0 mmol/L (21-32); Calcium, Blood 9.3 mg/dL (8.5-10.1); Chloride, Blood 103.0 mmol/L (98-108); Creatinine, Blood 1.16 mg/dL (0.60-1.20); Glucose, Blood 139.0 mg/dL (70-99); Potassium, Blood 3.5 mmol/L (3.5-5.5); Sodium, Blood 136.0 mmol/L (136-145)
[2025-05-16 10:28] VITALS: BP 100/55
--- NOTE | 2025-05-16 10:46 | NUR ---
CALLED DR JEFFERY INFORMED HIM THAT PT'S BP 100/55 AND HOLDING METOPROLOL XL UNLESS HE THOUGHT OTHERWISE. ALSO HOLDING IV LASIX. HE AGREES WITH HOLDING BOTH AND WRITING SCRIPT TO USE ORAL LASIX WITH DC MEDS. ASKED ABOUT DISCHARGE, STATES PT WILL BE DC'D AND HE WOULD WRITE ORDERS WITHIN A FEW HOURS. NOTIFIED PT/FAMILY OF ALL ABOVE
--- NOTE | 2025-05-16 16:02 | NUR ---
PT DISCHARGED WITH DC INSTRUCTIONS. HAS OXYGEN NEEDED AT HOME. ROOM AIR SAT 96%, MIN DYSPNEA WITH ACTIVITY. WHEELCHAIR STAFF ESCORT OUT TO PRIVATE CAR TO DRIVE HOME.
== END 2025-05-16 13:21 | disposition home health service (06) | DRG 280 ==
LOC: ER 07:53 → ICUE 07:54 → MEDS 10:37 → ICUE 11:01 → PCU 05-15 02:43 → MEDS 05-16 00:25 → ENPENDDIS 05-16 11:53 → MEDS 05-16 13:21
PROVIDERS: Emergency Medicine; Internal Medicine Critical Care Medicine; Student in an Organized Health Care Education/Training Program; ADMIT Internal Medicine
PROC: 5A09357 Assistance with Respiratory Ventilation, Less than 24 Consecutive Hours, Continuous Positive Airway Pressure (ICD-10-PCS; principal; 2025-05-13)
PROC: 3E03329 Introduction of Other Anti-infective into Peripheral Vein, Percutaneous Approach (ICD-10-PCS; 2025-05-13)
DX: I13.0 Hypertensive heart and chronic kidney disease with heart failure and stage 1 through stage 4 chronic kidney disease, or unspecified chronic kidney disease (principal); I50.33 Acute on chronic diastolic (congestive) heart failure; I21.A1 Myocardial infarction type 2; J18.9 Pneumonia, unspecified organism; J96.01 Acute respiratory failure with hypoxia; J96.02 Acute respiratory failure with hypercapnia; J44.1 Chronic obstructive pulmonary disease with (acute) exacerbation; E87.29 Other acidosis; J44.0 Chronic obstructive pulmonary disease with (acute) lower respiratory infection; E11.22 Type 2 diabetes mellitus with diabetic chronic kidney disease; N18.30 Chronic kidney disease, stage 3 unspecified; I44.7 Left bundle-branch block, unspecified; I25.10 Atherosclerotic heart disease of native coronary artery without angina pectoris; I34.2 Nonrheumatic mitral (valve) stenosis; N40.0 Benign prostatic hyperplasia without lower urinary tract symptoms; M75.101 Unspecified rotator cuff tear or rupture of right shoulder, not specified as traumatic; E78.5 Hyperlipidemia, unspecified; I27.20 Pulmonary hypertension, unspecified; Z79.82 Long term (current) use of aspirin; I25.2 Old myocardial infarction; Z95.3 Presence of xenogenic heart valve; Z99.81 Dependence on supplemental oxygen; Z87.891 Personal history of nicotine dependence; Z79.84 Long term (current) use of oral hypoglycemic drugs; Z79.51 Long term (current) use of inhaled steroids; Z79.02 Long term (current) use of antithrombotics/antiplatelets
CPT/HCPCS: 36415; 71045; 80048; 80053; 82803; 82947; 83036; 83605; 83880; 84484; 85025; 85027; 85610; 87637; 93005; 93010; 93306; 94640; 94644; 94660; 94664; 94760; 94762; 96365; 96375; 97110; 97116; 97161; 97165; 97530; 97535; 99285-25; A6590; A9270; J0696; J1650; J1938; J2919